=== PATIENT | female | born 1985 | race Caucasian/White ===

== ENCOUNTER 2018-04-14 12:18 | Emergency (ER) | payer OTHER ==
--- OUTSIDE RECORDS SUMMARY | 2018-04-14 12:21 | XMS REPORT | Clinical Summary ---
:1985 Author Organization [facility] Address [address] [place] [id number] Care Team Providers Name Role Phone Nohemy Douglas MD Primary Care Provider Allergies Active Allergy Reactions Severity Noted Date Comments Quetiapine GI Intolerance 05/26/2015 Medications Medication Sig Dispensed Refills Start Date End Date Status traZODone (DESYREL) Take 100 mg by 0 Active 100 MG tablet mouth nightly as needed. clonAZEPAM (KlonoPIN) Take 1 mg by mouth 0 Active 1 MG tablet 2 (two) times a day as needed for seizures. tretinoin microspheres Apply topically 0 Active (RETIN-A MICRO) 0.04 % nightly. gel promethazine Insert 25 mg into 0 Active (PHENERGAN) 25 MG the rectum every 6 suppository (six) hours as needed for nausea or vomiting. riboflavin, vitamin Take 1 tablet by 0 Active B2, 100 mg tablet mouth 4 (four) times a day. magnesium oxide Take 400 mg by 0 Active (MAG-OX) 400 mg tablet mouth 2 (two) times a day. nortriptyline Take 10 mg by 0 Active (PAMELOR) 10 MG mouth 4 (four) capsule times a day. levETIRAcetam (KEPPRA) Take 500 mg by 0 Active 500 MG tablet mouth 2 (two) times a day. nadolol (CORGARD) 20 Take 40 mg by 0 Active MG tablet mouth daily. LATUDA 60 mg tablet TAKE ONE (1) 0 05/15/2016 Active TABLET BY MOUTH AT BEDTIME lithium (LITHOBID) 300 Take 600 mg by 2 07/16/2016 Active MG CR tablet mouth nightly. DULoxetine (CYMBALTA) Take 90 mg by 0 07/16/2016 Active 30 MG capsule mouth once daily. diazePAM (VALIUM) 10 Take 10 mg by 2 07/16/2016 Active MG tablet mouth nightly. Active Problems Problem Noted Date Intractable migraine with status migrainosus 07/21/2016 Acne, unspecified 12/26/2015 Bipolar affective disorder 05/26/2015 Overview: - [facility] w Dr Mason , with pt Obgyn Family history of malignant neoplasm of breast 05/26/2015 Routine gynecological examination 05/26/2015 Low back pain 05/26/2015 Mixed anxiety depressive disorder 05/26/2015 Depressed mood 05/18/2015 Immunizations Name Dates Previously Given Next Due Influenza, Quadrivalent 12/14/2014 Tdap 04/11/2015 Family History Medical History Relation Name Comments Hypertension Father Heart disease Maternal Grandfather Cancer Mother breast age 58 Hypertension Mother Neurofibromatosis Mother Cancer Paternal Grandfather No Known Problems Sister Relation Name Status Comments Father Alive Maternal Aunt Alive x 3 breast cancer and one with bladder cancer Maternal Grandfather Mother Alive breast cancer Paternal Grandfather bladder Sister Alive Social History Tobacco Use Types Packs/Day Years Used Date Never Smoker Smokeless Tobacco: Never Used Alcohol Use Drinks/Week oz/Week Comments No Sex Assigned at Date Recorded Not on file Job Start Date Occupation Industry Not on file Not on file Not on file Travel History Travel Start Travel End No recent travel history available. Last Filed Vital Signs Not on file Plan of Treatment Health Maintenance Due Date Last Done Comments CERVICAL CANCER SCREENING 2005 INFLUENZA VACCINE 10/15/2017 12/14/2014, 12/14/2014 Results Not on fileafter 04/13/2017 Insurance Payer Benefit Plan / Group Subscriber ID Type Phone Address [employer] HMO/[place] xxxxxxxxx[place] [address] Advance Directives Patient has advance care planning documents on file. For more information, please contact:[place] [address]
[2018-04-14 13:40] LABS: Urine Bacteria <20 /HPF (<20); Urine Culture Reflex Order NOT NEEDED; Urine RBC 20-50 /HPF (NONE SEEN)
[2018-04-14 13:41] LABS: Urine Mucus 2+ /HPF (NONE SEEN)
[2018-04-14 13:41] LABS: Urine Blood 2+ (NEG); Urine Glucose NEGATIVE (NEG); Urine Protein 2+ (NEG); Urine Specific Gravity 1.025 (1.005-1.030)
[2018-04-14] MEDS ORDERED: KETOROLAC 30 MG/ML INJ ONE (13:42)
[2018-04-14] MEDS ORDERED: NA CHLORIDE 0.9% 0 ML ONE (13:42)
[2018-04-14 13:55] LABS: ALT/SGPT 18 U/L (12-78); AST/SGOT 9 U/L (15-37); Alkaline Phosphatase 84 U/L (45-117); BUN Blood Urea Nitrogen 12 mg/dL (7-18); Bicarbonate 28 mmol/L (21-32); Bilirubin Direct 0.1 mg/dL (0-0.2); Bilirubin Total 0.4 mg/dL (0.2-1.0); Glucose Level 86 mg/dL (74-106); Lipase 128 U/L (73-393); Potassium 3.6 mmol/L (3.5-5.1); Protein, Total 7.5 g/dL (6.4-8.2); Sodium Level 140 mmol/L (136-145)
[2018-04-14 14:03] LABS: Absolute Lymphocytes (CBC) 1.9 K/uL (0.7-4.9); Absolute Monocytes 0.5 K/uL (0.1-1.3); Basophils % 0.3 % (0-1.3); Eosinophils % 0.3 % (0-4.4); Hematocrit 41.2 % (36.0-45.0); Lymphocytes % 15.1 % (15.3-44.8); MPV 9.2 fL (7.6-11.3); Monocytes % 4.1 % (3.3-12.3); RBC Red Blood Cell Count 4.57 M/uL (3.86-4.86)
[2018-04-14] MEDS ORDERED: FENTANYL CITR 100 MCG/2 ML ONE (14:20)
[2018-04-14] MEDS ORDERED: NA CHLORIDE 0.9% 1,000 ML ONE (14:29)
--- NOTE | 2018-04-14 14:46 | RAD REPORT ---
EXAM DESCRIPTION: CT - Abdomen Pelvis W Contrast - 04/14/2018 2:31 pm CLINICAL HISTORY: Abdominal pain, history of bladder infection COMPARISON: None. TECHNIQUE: Biphasic, helical CT imaging of the abdomen and pelvis was performed following 100 ml non -ionic IV contrast. Oral contrast was given. All CT scans are performed using dose optimization technique as appropriate and may include automated exposure control or mA/KV adjustment according to patient size. FINDINGS: No suspicious findings in the lung bases. No pericardial thickening or effusion. Small lym ph node is present in the left side pericardial fat. A 2.5 centimeter right-side pericardial cyst pre sent as an incidental finding. The liver, spleen, and pancreas show no suspicious findings. Cholecystectomy clips are present. No bi liary tree dilatation. Symmetric renal function is seen with no hydronephrosis or suspicious renal mass. No pyelonephritis o r acute parenchymal process. Urinary bladder is contracted. Wall appears thickened and edematous cons istent with a cystitis history. No bladder calculus or bladder mass. Uterus and ovaries show no suspi cious findings. No adrenal abnormalities. No dilated bowel loops or bowel wall thickening. Appendix is normal. No free air, free fluid or pneum atosis. No other area of inflammatory change identifiable. No hernia, mass or bulky lymphadenopathy. No suspicious bony findings. IMPRESSION: Cystitis pattern seen in the bladder with no mass or bladder stone. No pyelonephritis or acute finding. No acute GI or EDITORIAL CLERK finding. Gallbladder is absent. Nonacute findings detailed in the body of the re port.
--- NOTE | 2018-04-14 15:17 | ER ---
Nurse's Notes [facility] Name: Tash Peña Age: 33 yrs Sex: Female : 1985 Arrival Date: 04/14/2018 Time: 12:21 Bed 14 Private MD: None, None Diagnosis: Cystitis, unspecified with hematuria Presentation: 04/14 12:34 Presenting complaint: Patient states: for the past 4 days i have been having bladder tw2 infection, now my back hurts and pressure and i noticed some blood today, the pain in my back and side has been for 2 days, it is worse than before, it feels similar to my previous kidney infection. Transition of care: patient was not received from another setting of care. Onset of symptoms was April 14, 2018. Risk Assessment: Do you want to hurt yourself or someone else? Patient reports no desire to harm self or others. Initial Sepsis Screen: Does the patient meet any 2 criteria? No. Patient's initial sepsis screen is negative. Does the patient have a suspected source of infection? No. Patient's initial sepsis screen is negative. Care prior to arrival: None. 12:34 Method Of Arrival: Ambulatory tw2 12:34 Acuity: MABLE 3 tw2 Triage Assessment: 12:36 General: Appears in no apparent distress. well groomed, Behavior is calm, cooperative, tw2 appropriate for age. Pain: Complains of pain in back, abdomen and pelvis. GI: Reports nausea. : Reports burning with urination, pain in left in lower back with urination, "and this pressure is just staying constant and in my pelvis" urinary frequency, vaginal bleeding that is. 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 - Social history:: Smoking status: . - Ebola Screening: : Patient denies travel to an Ebola-affected area in the 21 days before illness onset. Screenin:50 Abuse screen: Denies threats or abuse. Denies injuries from another. Nutritional ca1 screening: No deficits noted. Tuberculosis screening: No symptoms or risk factors identified. Fall Risk None identified. Assessment: 12:50 General: Appears in no apparent distress. uncomfortable. Pain: Complains of pain in ca1 pelvis and abdomen and back Pain currently is 7 out of 10 on a pain scale. Quality of pain is described as sharp, Pain began 4 days ago. Neuro: Level of Consciousness is awake, alert, obeys commands, Oriented to person, place, time, situation. Cardiovascular: Heart tones S1 S2 present Capillary refill < 3 seconds. Respiratory: Airway is patent Trachea midline Respiratory effort is even, unlabored, Respiratory pattern is regular, symmetrical, Breath sounds are clear bilaterally. GI: Abdomen is flat, non-distended, Bowel sounds present X 4 quads. Abd is soft Abdomen is tender to palpation in right lower quadrant and left lower quadrant Reports nausea, vomiting. : Urine is cloudy, blood tinged as reported by pt. Reports burning with urination, pain urgency, urinary frequency. EENT: No signs and/or symptoms were reported regarding the EENT system. Derm: Skin is intact, is healthy with good turgor, Skin is pink, warm \\T\\ dry. Musculoskeletal: Circulation, motion, and sensation intact. 13:38 Reassessment: Patient appears in no apparent distress at this time. Patient and/or ca1 family updated on plan of care and expected duration. Pain level reassessed. Patient is alert, oriented x 3, equal unlabored respirations, skin warm/dry/pink. 14:05 Reassessment: Patient appears in no apparent distress at this time. Patient is alert, ca1 oriented x 3, equal unlabored respirations, skin warm/dry/pink. patient is crying and still complains of sharp pain at back and abdomen. Notified provider. 14:39 Reassessment: Patient appears in no apparent distress at this time. Patient and/or ca1 family updated on plan of care and expected duration. Pain level reassessed. Patient is alert, oriented x 3, equal unlabored respirations, skin warm/dry/pink. 15:30 Reassessment: Patient appears in no apparent distress at this time. Patient and/or ca1 family updated on plan of care and expected duration. Pain level reassessed. Patient is alert, oriented x 3, equal unlabored respirations, skin warm/dry/pink. Vital Signs: 12:35 BP 110 / 86; Pulse 86; Resp 17; Temp 97.6; Pulse Ox 100% on R/A; Weight 62.6 kg (R); tw2 Height 5 ft. 4 in. (162.56 cm); Pain 7/10; 13:38 BP 102 / 65; Pulse 85; Resp 18; Pulse Ox 100% on R/A; ca1 14:05 BP 110 / 60; Pulse 72; Resp 18; Pulse Ox 99% on R/A; Pain 7/10; ca1 14:38 BP 102 / 68; Pulse 68; Resp 19; Pulse Ox 100% on R/A; ca1 15:30 BP 105 / 67; Pulse 64; Resp 19; Pulse Ox 100% on R/A; ca1 12:35 Body Mass Index 23.69 (62.60 kg, 162.56 cm) tw2 ED Course: 12:21 Patient arrived in ED. mr 12:22 None, None is Private Physician. mr 12:35 Triage completed. tw2 12:39 Arm band placed on. tw2 12:41 jM Slade PA is PHCP. cp 12:41 Joel Cash MD is Attending Physician. cp 12:48 Marylou Rothman, FLOR is Primary Nurse. ca1 12:50 Patient has correct armband on for positive identification. Placed in gown. Bed in low ca1 position. Call light in reach. Side rails up X 1. Pulse ox on. NIBP on. Warm blanket given. 12:55 Urine collected: clean catch specimen, cloudy, Amount Voided: 40mL UPT and Dipstick ca1 done. UPT - negative. 13:22 Inserted saline lock: 20 gauge in right antecubital area, using aseptic technique. ca1 Blood collected. 14:31 CT Abd/Pelvis - W/Contrast: no oral contrast In Process Unspecified. EDMS 14:32 CT completed. Patient tolerated procedure well. Patient moved to CT via wheelchair. jg6 Patient moved back from CT. 15:16 Nancie Vega MD is Referral Physician. cp 15:45 No provider procedures requiring assistance completed. IV discontinued, intact, ca1 bleeding controlled, No redness/swelling at site. Pressure dressing applied. Administered Medications: 13:25 Drug: NS 0.9% 1000 ml Route: IV; Rate: 1 bolus; Site: right antecubital; ca1 15:30 Follow up: Response: No adverse reaction; IV Status: Completed infusion ca1 13:26 Drug: TORadol 30 mg Route: IVP; Site: right antecubital; ca1 14:34 Follow up: Response: Pain is unchanged, physician notified ca1 14:15 Drug: fentaNYL (PF) 25 mcg Route: IVP; Site: right antecubital; ca1 15:42 Follow up: Response: No adverse reaction; Pain is unchanged, physician notified ca1 15:12 Drug: Rocephin 1 grams Route: IV; Rate: bolus; Site: right antecubital; ca1 15:42 Follow up: Response: Medication administered at discharge. ca1 15:43 Follow up: IV Status: IVP per Pharmacy protocol ca1 15:15 Drug: Pyridium 200 mg Route: PO; ca1 15:43 Follow up: Response: Medication administered at discharge. ca1 15:21 Not Given (Physician Discretion): Tylenol #3 (300 mg-30 mg) 2 tabs PO once cp 15:25 Drug: fentaNYL (PF) 50 mcg Route: IVP; Site: right antecubital; ca1 15:42 Follow up: Response: Medication administered at discharge. ca1 15:41 Not Given (P discharged): NS 0.9% 1000 ml IV at 125 ml/hr continuous ca1 Outcome: 15:17 Discharge ordered by MD. cp 15:45 Discharged to home ambulatory. ca1 15:45 Condition: stable 15:45 Discharge instructions given to patient, Instructed on discharge instructions, follow up and referral plans. medication usage, Demonstrated understanding of instructions, follow-up care, medications, Prescriptions given X 4. 16:00 Patient left the ED. ca1 Signatures: Dispatcher [employer] EDMS Jordan Ellen Mj Mclean PA PA cp Wise, Tara, RN RN tw2 Donna Isabel Cheryl RN RN ca1
--- NOTE | 2018-04-14 15:18 | EDPHYS ---
Physician Documentation [facility] Name: Tash Peña Age: 33 yrs Sex: Female : 1985 Arrival Date: 04/14/2018 Time: 12:21 Bed 14 Private MD: None, None ED Physician Joel Cash HPI: 04/14 13:10 This 33 yrs old Female presents to ER via Ambulatory with complaints of cp Urinary Problem. 13:10 The patient presents with urinary symptoms, dysuria, frequency, hematuria. Onset: The cp symptoms/episode began/occurred 4 day(s) ago. Associated signs and symptoms: Pertinent positives: low back pain, Pertinent negatives: constipation, diarrhea, fever. Severity of symptoms: in the emergency department the symptoms are unchanged, despite home interventions. 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 - Social history:: Smoking status: . - Ebola Screening: : Patient denies travel to an Ebola-affected area in the 21 days before illness onset. ROS: 13:20 Constitutional: Negative for fever, poor PO intake. cp 13:20 Eyes: Negative for injury, pain, redness, and discharge. cp 13:20 Cardiovascular: Negative for chest pain, edema, palpitations, acute changes. cp 13:20 ENT: Negative for drainage from ear(s), ear pain, sore throat, difficulty swallowing, cp difficulty handling secretions. 13:20 Respiratory: Negative for cough, shortness of breath, wheezing. 13:20 Abdomen/GI: Negative for vomiting, diarrhea, constipation, black/tarry stool, rectal bleeding. 13:20 Back: Positive for pain at rest, pain with movement, Negative for injury or acute deformity, decreased range of motion. 13:20 : Positive for urinary symptoms. 13:20 Skin: Negative for cellulitis, rash. 13:20 Neuro: Negative for altered mental status, headache, weakness. 13:20 All other systems are negative. Exam: 13:25 Constitutional: The patient appears in no acute distress, alert, awake, non-toxic, well cp developed, well nourished, uncomfortable. 13:25 Head/Face: Normocephalic, atraumatic. cp 13:25 Eyes: Pupils equal round and reactive to light, extra-ocular motions intact. Lids and cp lashes normal. Conjunctiva and sclera are non-icteric and not injected. Cornea within normal limits. Periorbital areas with no swelling, redness, or edema. ENT: Nares patent. No nasal discharge, no septal abnormalities noted. Tympanic membranes are normal and external auditory canals are clear. Oropharynx with no redness, swelling, or masses, exudates, or evidence of obstruction, uvula midline. Mucous membranes moist. Chest/axilla: Normal chest wall appearance and motion. Nontender with no deformity. No lesions are appreciated. 13:25 Cardiovascular: Rate: normal, Rhythm: regular, Edema: is not appreciated. cp 13:25 Respiratory: the patient does not display signs of respiratory distress, Respirations: normal, no use of accessory muscles, no retractions, no splinting, no tachypnea, labored breathing, is not present, Breath sounds: are clear throughout, no decreased breath sounds, no stridor, no wheezing. 13:25 Abdomen/GI: Inspection: abdomen appears normal, Bowel sounds: active, all quadrants, Palpation: soft, in all quadrants, mild abdominal tenderness, in the right lower quadrant and left lower quadrant, rebound tenderness, is not appreciated, involuntary guarding, is not appreciated. 13:25 Back: pain, that is moderate, of the left low back, ROM is normal. 13:25 Skin: cellulitis, is not appreciated, no rash present. Vital Signs: 12:35 BP 110 / 86; Pulse 86; Resp 17; Temp 97.6; Pulse Ox 100% on R/A; Weight 62.6 kg (R); tw2 Height 5 ft. 4 in. (162.56 cm); Pain 7/10; 13:38 BP 102 / 65; Pulse 85; Resp 18; Pulse Ox 100% on R/A; ca1 14:05 BP 110 / 60; Pulse 72; Resp 18; Pulse Ox 99% on R/A; Pain 7/10; ca1 14:38 BP 102 / 68; Pulse 68; Resp 19; Pulse Ox 100% on R/A; ca1 15:30 BP 105 / 67; Pulse 64; Resp 19; Pulse Ox 100% on R/A; ca1 12:35 Body Mass Index 23.69 (62.60 kg, 162.56 cm) tw2 MDM: 12:41 Patient medically screened. cp 14:00 Differential diagnosis: endometriosis, ovarian cyst, urinary tract infection, cp pyelonephritis, cystitis. 15:15 Data reviewed: vital signs, nurses notes, lab test result(s), radiologic studies, CT cp scan, and as a result, I will discharge patient. 15:15 Counseling: I had a detailed discussion with the patient and/or guardian regarding: the cp historical points, exam findings, and any diagnostic results supporting the discharge/admit diagnosis, lab results, radiology results, the need for outpatient follow up, a urologist. 04/14 13:04 Order name: Urine Dipstick--Ancillary (enter results); Complete Time: 14:03 04/14 14:03 Interpretation: Normal except: UBLD 2+; UPROT 2+; UESTR 2+. cp 04/14 13:04 Order name: Urine --Ancillary (enter results); Complete Time: 14:03 04/14 13:12 Order name: Basic Metabolic Panel; Complete Time: 14:03 04/14 13:12 Order name: CBC with Diff; Complete Time: 15:03 04/14 15:03 Interpretation: Normal except: WBC 12.5; MCV 90.1; GIA% 80.2; LYM% 15.1; NEUT A 10.0. 04/14 13:12 Order name: Creatinine for Radiology; Complete Time: 14:03 04/14 13:12 Order name: Hepatic Function; Complete Time: 14:03 04/14 13:12 Order name: Lipase; Complete Time: 14:03 04/14 13:12 Order name: [place]; Complete Time: 15:03 04/14 13:14 Order name: Urine Microscopic Only; Complete Time: 14:03 04/14 14:03 Interpretation: Normal except: UWBC >50; URBC 20-50; SQEPI 5-10. cp 04/14 13:14 Order name: Urine Culture cp 04/14 13:14 Order name: CT Abd/Pelvis - W/Contrast: no oral contrast; Complete Time: 15:03 cp 04/14 13:12 Order name: IV Saline Lock; Complete Time: 13:32 cp 04/14 13:12 Order name: Labs collected and sent; Complete Time: 13:32 cp Administered Medications: 13:25 Drug: NS 0.9% 1000 ml Route: IV; Rate: 1 bolus; Site: right antecubital; ca1 15:30 Follow up: Response: No adverse reaction; IV Status: Completed infusion ca1 13:26 Drug: TORadol 30 mg Route: IVP; Site: right antecubital; ca1 14:34 Follow up: Response: Pain is unchanged, physician notified ca1 14:15 Drug: fentaNYL (PF) 25 mcg Route: IVP; Site: right antecubital; ca1 15:42 Follow up: Response: No adverse reaction; Pain is unchanged, physician notified ca1 15:12 Drug: Rocephin 1 grams Route: IV; Rate: bolus; Site: right antecubital; ca1 15:42 Follow up: Response: Medication administered at discharge. ca1 15:43 Follow up: IV Status: IVP per Pharmacy protocol ca1 15:15 Drug: Pyridium 200 mg Route: PO; ca1 15:43 Follow up: Response: Medication administered at discharge. ca1 15:21 Not Given (Physician Discretion): Tylenol #3 (300 mg-30 mg) 2 tabs PO once cp 15:25 Drug: fentaNYL (PF) 50 mcg Route: IVP; Site: right antecubital; ca1 15:42 Follow up: Response: Medication administered at discharge. ca1 15:41 Not Given (P discharged): NS 0.9% 1000 ml IV at 125 ml/hr continuous ca1 Disposition: 18:24 Co-signature as Attending Physician, Joel Cash MD. ma2 Disposition: 04/14/18 15:17 Discharged to Home. Impression: Cystitis, unspecified with hematuria. - Condition is Stable. - Discharge Instructions: Urinary Tract Infection, Adult, Interstitial Cystitis. - Prescriptions for Naprosyn 500 mg Oral Tablet - take 1 tablet by ORAL route 2 times per day take with food; 20 tablet. Pyridium 200 mg Oral Tablet - take 1 tablet by ORAL route every 8 hours for 3 days; 9 tablet. Tylenol- Codeine #3 300-30 mg Oral Tablet - take 2 tablets by ORAL route every 6 hours As needed; 20 tablet. Cipro 500 mg Oral Tablet - take 1 tablet by ORAL route every 12 hours for 7 days; 14 tablet. - Medication Reconciliation Form, Thank You Letter, Antibiotic Education, Prescription Opioid Use form. - Follow up: Nancie Vega MD; When: 2 - 3 days; Reason: Recheck today's complaints. - Problem is new. - Symptoms have improved. Signatures: Dispatcher [employer] EDMS Mj Slade PA PA cp Wise, Tara, RN RN tw2 Joel Cash MD MD ma2 Marylou Rothman RN RN ca1 Corrections: (The following items were deleted from the chart) 15:18 15:17 04/14/2018 15:17 Discharged to Home. Impression: Cystitis, unspecified with cp hematuria. Condition is Stable. Forms are Medication Reconciliation Form, Thank You Letter, Antibiotic Education, Prescription Opioid Use. Follow up: Nancie Vega; When: 2 - 3 days; Reason: Recheck today's complaints. Problem is new. Symptoms have improved. cp 16:00 15:18 04/14/2018 15:17 Discharged to Home. Impression: Cystitis, unspecified with ca1 hematuria. Condition is Stable. Discharge Instructions: Interstitial Cystitis. Forms are Medication Reconciliation Form, Thank You Letter, Antibiotic Education, Prescription Opioid Use. Follow up: Nancie Vega; When: 2 - 3 days; Reason: Recheck today's complaints. Problem is new. Symptoms have improved. cp
[2018-04-14] MEDS ORDERED: PHENAZOPYRIDINE 100MG TAB PO ONE (15:20)
[2018-04-14] MEDS ORDERED: CEFTRIAXONE/SWI 1gm 1 GM/10 ML SYR ONE (15:20)
[2018-04-14] MEDS ORDERED: CODEINE 30MG/APAP 300MG TAB ONE (15:22)
== END 2018-04-14 16:00 | disposition home or self-care (01) ==
LOC: ER 12:18
DX: N30.91 Cystitis, unspecified with hematuria (principal); F41.9 Anxiety disorder, unspecified; F32.9 Major depressive disorder, single episode, unspecified; Z88.5 Allergy status to narcotic agent
CPT/HCPCS: 36415; 74177; 80048; 80076; 80178; 81003; 81015; 81025; 83690; 85025; 87077; 87086; 87088; 87186; 96361; 96365; 96375; 99284; J0696; J3010; J7030; Q9967

== ENCOUNTER 2018-05-21 18:57 | Emergency (ER) | payer OTHER ==
--- OUTSIDE RECORDS SUMMARY | 2018-05-21 18:59 | XMS REPORT | Clinical Summary ---
:1985 Author Organization [facility] Address [address] [place] [id number] Care Team Providers Name Role Phone Nohemy [...] 10/15/2017 12/14/2014, 12/14/2014 Results Not on fileafter 05/20/2017 Insurance Payer Benefit Plan / Group Subscriber ID Type Phone Address [employer] HMO/POS xxxxxxxxxxx [place] [address] Advance Directives Patient has advance care planning documents on file. For more information, please contact:[place] [address]
--- NOTE | 2018-05-21 19:47 | ER ---
Nurse's Notes [facility] Name: Tash Peña Age: 33 yrs Sex: Female : 1985 Arrival Date: 05/21/2018 Time: 18:59 Bed Waiting Private MD: Diagnosis: ED Course: 05/21 18:59 Patient arrived in ED. rg4 19:15 Patient's name was called from ER lobby. No response. aj1 19:30 Patient's name was called from ER lobby. No response. aj1 19:46 Patient's name was called from ER lobby. No response. Unable to locate patient. Will aj1 disposition as left without being seen by a provider. Administered Medications: No medications were administered Outcome: 19:46 Patient left the ED. aj1 Signatures: Mercedes Betancur RN RN Margy Garcias rg4
== END 2018-05-21 19:46 | disposition left against medical advice (07) ==
LOC: ER 18:57
DX: Z53.21 Procedure and treatment not carried out due to patient leaving prior to being seen by health care provider (principal)

== ENCOUNTER 2018-06-16 02:03 | Emergency (ER) | payer OTHER ==
--- OUTSIDE RECORDS SUMMARY | 2018-06-16 02:06 | XMS REPORT | Clinical Summary ---
:1985 Author Organization [facility] Address [address] [place] [address] Care Team Providers Name Role Phone Nohemy Douglas MD Primary Care Provider Allergies Active Allergy Reactions Severity Noted Date Comments Quetiapine GI Intolerance 05/26/2015 Medications Medication Sig Dispensed Refills Start Date End Date Status traZODone (DESYREL) Take 100 mg by 0 Active 100 MG tablet mouth nightly as needed. clonAZEPAM (KlonoPIN) Take 1 mg by 0 Active 1 MG tablet mouth 2 (two) times a day as needed for seizures. tretinoin Apply topically 0 Active microspheres (RETIN-A nightly. MICRO) 0.04 % gel promethazine Insert 25 mg 0 Active (PHENERGAN) 25 MG into the rectum suppository every 6 (six) hours as needed for nausea or vomiting. riboflavin, vitamin Take 1 tablet by 0 Active B2, 100 mg tablet mouth 4 (four) times a day. magnesium oxide Take 400 mg by 0 Active (MAG-OX) 400 mg mouth 2 (two) tablet times a day. nortriptyline Take 10 mg by 0 Active (PAMELOR) 10 MG mouth 4 (four) capsule times a day. levETIRAcetam Take 500 mg by 0 Active (KEPPRA) 500 MG mouth 2 (two) tablet times a day. nadolol (CORGARD) 20 Take 40 mg by 0 Active MG tablet mouth daily. LATUDA 60 mg tablet TAKE ONE (1) 0 05/15/2016 Active TABLET BY MOUTH AT BEDTIME lithium (LITHOBID) Take 600 mg by 2 07/16/2016 Active 300 MG CR tablet mouth nightly. DULoxetine (CYMBALTA) Take 90 mg by 0 07/16/2016 Active 30 MG capsule mouth once daily. diazePAM (VALIUM) 10 Take 10 mg by 2 07/16/2016 Active MG tablet mouth nightly. LORAZepam (ATIVAN) 1 Take 1 tablet (1 12 tablet 0 05/22/2018 05/25/2018 MG tablet mg total) by mouth 3 (three) times a day as needed for anxiety for up to 3 days. Active Problems Problem Noted Date Intractable migraine with status migrainosus 07/21/2016 Acne, unspecified 12/26/2015 Bipolar affective disorder 05/26/2015 Overview: - [facility] w Dr Mason , with pt Obgyn Family history of malignant neoplasm of breast 05/26/2015 Routine gynecological examination 05/26/2015 Low back pain 05/26/2015 Mixed anxiety depressive disorder 05/26/2015 Depressed mood 05/18/2015 Encounters Date Type Specialty Care Team Description 05/22/2018 Emergency Emergency Medicine Timothy Kilgore Panic attack as MD Dawson reaction to stress (Primary Dx) 05/21/2018 Emergency Emergency Medicine Chano Langston DO Generalized anxiety disorder with panic attacks (Primary Dx) after 06/15/2017 Immunizations Name Dates Previously Given Next Due [...] travel history available. 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 Pulse 82 05/22/2018 11:14 PM SENIOR FIRMWARE ENGINEER Temperature 36.8 C (98.3 F) 05/22/2018 11:14 PM SENIOR FIRMWARE ENGINEER Respiratory Rate 18 05/22/2018 11:14 PM SENIOR FIRMWARE ENGINEER Oxygen Saturation 98% 05/22/2018 11:14 PM SENIOR FIRMWARE ENGINEER Inhaled Oxygen Concentration - - Weight 95.3 kg (210 lb) 05/22/2018 10:16 PM SENIOR FIRMWARE ENGINEER Height 170.2 cm (5' 7") 05/22/2018 10:16 PM SENIOR FIRMWARE ENGINEER Body Mass Index 32.89 05/22/2018 10:16 PM SENIOR FIRMWARE ENGINEER Plan of Treatment Health Maintenance Due Date Last Done Comments CERVICAL CANCER SCREENING 2005 INFLUENZA VACCINE 10/15/2017 12/14/2014, 12/14/2014 Results Not on fileafter 06/15/2017 Insurance Payer Benefit Plan / Group Subscriber ID Type Phone Address [employer]WORK xxxxxxxxxxx HMO Advance Directives Patient has advance care planning documents on file. For more information, please contact:[id number] [place] [address]
[2018-06-16] MEDS ORDERED: LORAZEPAM 1 MG TABLET ONE (03:12)
--- NOTE | 2018-06-16 03:36 | EDPHYS ---
Physician Documentation [facility] Name: Tash Peña Age: 33 yrs Sex: Female : 1985 Arrival Date: 06/16/2018 Time: 02:07 Bed 17 Private MD: ED Physician Erick Zarco HPI: 06/16 03:32 This 33 yrs old Female presents to ER via Ambulatory with complaints of tw4 Palpitations, Chest Pain, Chest Tightness. 03:32 The patient presents with a history of heart racing. Context: The symptoms occur with tw4 anxiety. Onset: The symptoms/episode began/occurred just prior to arrival. Duration: The patient or guardian reports a single episode, that is still ongoing, but improving. Modifying factors: The symptoms are aggravated by nothing. The symptoms are alleviated by nothing. Associated signs and symptoms: The patient has no apparent associated signs or symptoms. Severity of symptoms: At their worst the symptoms were moderate. The patient has not experienced similar symptoms in the past. 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 - Social history:: Smoking status: Patient uses tobacco products, denies chronic smoking, but will smoke occasionally, Patient/guardian denies using alcohol, street drugs. - Ebola Screening: : No symptoms or risks identified at this time. ROS: 03:32 Constitutional: Negative for fever, chills, and weight loss, Neck: Negative for injury, tw4 pain, and swelling, Respiratory: Negative for shortness of breath, cough, wheezing, and pleuritic chest pain, Abdomen/GI: Negative for abdominal pain, nausea, vomiting, diarrhea, and constipation, Back: Negative for injury and pain, MS/Extremity: Negative for injury and deformity, Skin: Negative for injury, rash, and discoloration, Neuro: Negative for headache, weakness, numbness, tingling, and seizure. 03:32 Cardiovascular: Positive for palpitations, Negative for chest pain, edema, orthopnea. Exam: 03:32 Constitutional: This is a well developed, well nourished patient who is awake, alert, tw4 and in no acute distress. Head/Face: Normocephalic, atraumatic. Chest/axilla: Normal chest wall appearance and motion. Nontender with no deformity. No lesions are appreciated. Cardiovascular: Regular rate and rhythm with a normal S1 and S2. No gallops, murmurs, or rubs. Normal PMI, no JVD. No pulse deficits. Respiratory: Lungs have equal breath sounds bilaterally, clear to auscultation and percussion. No rales, rhonchi or wheezes noted. No increased work of breathing, no retractions or nasal flaring. Abdomen/GI: Soft, non-tender, with normal bowel sounds. No distension or tympany. No guarding or rebound. No evidence of tenderness throughout. Back: No spinal tenderness. No costovertebral tenderness. Full range of motion. MS/ Extremity: Pulses equal, no cyanosis. Neurovascular intact. Full, normal range of motion. Neuro: Awake and alert, GCS 15, oriented to person, place, time, and situation. Cranial nerves II-XII grossly intact. Motor strength 5/5 in all extremities. Sensory grossly intact. Cerebellar exam normal. Normal gait. Vital Signs: 02:24 BP 107 / 72; Pulse 73; Resp 16 S; Temp 97.7(O); Pulse Ox 100% on R/A; Weight 65.77 kg bb (R); Height 5 ft. 4 in. (162.56 cm) (R); 03:00 BP 103 / 69; Pulse 77; Resp 16; Pulse Ox 99% on R/A; jb4 02:24 Body Mass Index 24.89 (65.77 kg, 162.56 cm) bb MDM: 02:17 Patient medically screened. tw4 03:34 Differential diagnosis: arrythmia, dehydration, stress disorder. Data reviewed: vital tw4 signs, nurses notes. Data interpreted: athletic monitor: rate is 77 beats/min, rhythm is normal sinus rhythm, Pulse oximetry: Interpretation:. Counseling: I had a detailed discussion with the patient and/or guardian regarding: the historical points, exam findings, and any diagnostic results supporting the discharge/admit diagnosis. Medical screen evaluation completed. EMTALA emergency medical condition absent. Medication response: ativan. Response to treatment: and as a result, I will discharge patient. Special discussion: I discussed with the patient/guardian in detail that at this point there is no indication for admission to the hospital. It is understood, however, that if the symptoms persist or worsen the patient needs to return immediately for re-evaluation. 04:03 ED course: Pt states that she has not has sleep in 4 days due to life stressors. Pt tw4 given Ativan for anxiety po. Pt states that Ativan doesn't work. Pt became more frustrated. Nurse informed MD that pt was more agitated. She then became belligerent towards staff. I informed patient that she could not "yell at staff members" I asked pt if she would like an alternative medication. Pt refused other treatment and refused discharge paperwork.. Administered Medications: 03:00 Drug: Ativan 1 mg Route: PO; jb4 Disposition: 06/16/18 03:36 Discharged to Home. Impression: Anxiety disorder, unspecified. - Condition is Stable. - Discharge Instructions: Social Anxiety Disorder, Panic Attacks, [id number], Generalized Anxiety Disorder. - Prescriptions for Ativan 1 mg Oral Tablet - take 1 tablet by ORAL route every 8 hours As needed; 5 tablet. - Medication Reconciliation Form, Thank You Letter, Antibiotic Education, Prescription Opioid Use form. - Follow up: Private Physician; When: Upon discharge from the Emergency Department; Reason: If symptoms return, Recheck today's complaints, Continuance of care. - Problem is new. - Symptoms have improved. Signatures: Maria Alejandra Maxwell RN RN bb Akbar Christopher RN RN jb4 Erick Zarco MD MD tw4 Corrections: (The following items were deleted from the chart) 04:08 03:36 06/16/2018 03:36 Discharged to Home. Impression: Anxiety disorder, unspecified. bb Condition is Stable. Forms are Medication Reconciliation Form, Thank You Letter, Antibiotic Education, Prescription Opioid Use. Follow up: Private Physician; When: Upon discharge from the Emergency Department; Reason: If symptoms return, Recheck today's complaints, Continuance of care. Problem is new. Symptoms have improved. tw4
--- NOTE | 2018-06-16 03:36 | ER ---
Nurse's Notes [facility] Name: Tash Peña Age: 33 yrs Sex: Female : 1985 Arrival Date: 06/16/2018 Time: 02:07 Bed 17 Private MD: Diagnosis: Anxiety disorder, unspecified Presentation: 06/16 02:19 Presenting complaint: Patient states: she has a history of anxiety and she is Bipolar bb and she is having anxiety the last few days have been very difficult her mother moved in with her because she has stage IV cancer, her had an appendectomy, she had to leave her son in [place] and is just too much. She has not been able to sleep the last few days and is experiencing some chest tightness and palpitations. She tried to make an appointment with her psychiatrist but is unable to get in until Friday and she is just overwhelmed. Transition of care: patient was not received from another setting of care. Onset of symptoms was June 13, 2018. Risk Assessment: Do you want to hurt yourself or someone else? Patient reports no desire to harm self or others. Initial Sepsis Screen: Does the patient meet any 2 criteria? No. Patient's initial sepsis screen is negative. Does the patient have a suspected source of infection? No. Patient's initial sepsis screen is negative. Care prior to arrival: None. 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 - Social history:: Smoking status: Patient uses tobacco products, denies chronic smoking, but will smoke occasionally, Patient/guardian denies using alcohol, street drugs. - Ebola Screening: : No symptoms or risks identified at this time. Screenin:30 Abuse screen: Denies threats or abuse. Nutritional screening: No deficits noted. jb4 Tuberculosis screening: No symptoms or risk factors identified. Fall Risk None identified. Assessment: 02:30 General: Appears in no apparent distress. uncomfortable, Behavior is cooperative, jb4 agitated, anxious, Pt reports being unable to sleep for the past 3 days and cope with recent stressors of the past 4 days. Medications at home are not helping and is unable to see her provider until the end of the week, and would like some relief.. Pain: Complains of pain in chest Pain does not radiate. Pain currently is 2 out of 10 on a pain scale. Quality of pain is described as tightness Pain began 2-3 days ago. Neuro: Level of Consciousness is awake, alert, obeys commands, Oriented to person, place, time, situation. Cardiovascular: Patient's skin is warm and dry. Respiratory: Reports shortness of breath Airway is patent Respiratory effort is even, unlabored, Respiratory pattern is regular, symmetrical. GI: No signs and/or symptoms were reported involving the gastrointestinal system. : No signs and/or symptoms were reported regarding the genitourinary system. EENT: No signs and/or symptoms were reported regarding the EENT system. Derm: Skin is intact, Skin is pink, warm \\T\\ dry. Musculoskeletal: Circulation, motion, and sensation intact. 03:18 Reassessment: Patient appears in no apparent distress at this time. No changes from jb4 previously documented assessment. Patient and/or family updated on plan of care and expected duration. Pain level reassessed. 03:57 Reassessment: upon discharge pt became very upset states she has a serious mental bb illness and we are not listening to her pt reassured that we are listening and trying to help her asked her what works for her in these situations she states "I don't know I need something to relax I have not slept in 4 days" again pt was asked if she wanted sleeping pills and she said no. Dr Zarco offered to prescribe a different medication and pt became very agitated and left with her spouse. Vital Signs: 02:24 BP 107 / 72; Pulse 73; Resp 16 S; Temp 97.7(O); Pulse Ox 100% on R/A; Weight 65.77 kg bb (R); Height 5 ft. 4 in. (162.56 cm) (R); 03:00 BP 103 / 69; Pulse 77; Resp 16; Pulse Ox 99% on R/A; jb4 02:24 Body Mass Index 24.89 (65.77 kg, 162.56 cm) bb ED Course: 02:07 Patient arrived in ED. es 02:13 Akbar Christopher, RN is Primary Nurse. jb4 02:17 Erick Zarco MD is Attending Physician. tw4 02:23 Triage completed. bb 02:24 Arm band placed on Patient placed in an exam room, on a stretcher, on pulse oximetry. bb Family accompanied patient. 02:30 Patient has correct armband on for positive identification. Bed in low position. Call jb4 light in reach. Side rails up X2. Pulse ox on. NIBP on. 04:05 No provider procedures requiring assistance completed. Patient did not have IV access bb during this emergency room visit. Patient maintains SpO2 saturation greater than 95% on room air. Administered Medications: 03:00 Drug: Ativan 1 mg Route: PO; jb4 Outcome: 03:36 Discharge ordered by . tw4 04:06 Discharged to home ambulatory, with family. bb 04:06 Condition: stable 04:06 Discharge instructions given to pt refused discharge instructions and prescription 04:08 Patient left the ED. bb Signatures: Shira Mendoza Brenda RN RN bb Akbar Christopher, RN FLOR jb Erick Zarco MD MD tw4
== END 2018-06-16 04:08 | disposition home or self-care (01) ==
LOC: ER 02:03
DX: F41.9 Anxiety disorder, unspecified (principal); F31.9 Bipolar disorder, unspecified; F32.9 Major depressive disorder, single episode, unspecified; Z72.0 Tobacco use; Z88.5 Allergy status to narcotic agent
CPT/HCPCS: 99284

== ENCOUNTER 2019-01-03 17:42 | Emergency (ER) | payer OTHER ==
[2019-01-03] MEDS ORDERED: HYDROCODONE/APAP 10/325 TAB ONE (18:16)
[2019-01-03] MEDS ORDERED: KETOROLAC 30 MG/ML INJ ONE (18:28)
[2019-01-03 18:40] LABS: Urine Blood TRACE (NEG); Urine Glucose NEGATIVE (NEG); Urine Protein NEGATIVE (NEG); Urine Specific Gravity 1.015 (1.005-1.030); Urine pH 6.5 (5.0-7.0)
--- NOTE | 2019-01-03 19:09 | RAD REPORT ---
EXAM DESCRIPTION: RAD - Hip Left 2 View - 01/03/2019 6:49 pm CLINICAL HISTORY: Left hip pain status post injury FINDINGS: No fracture or dislocation is seen. No bone or joint abnormality noted
[2019-01-03] MEDS ORDERED: dexAMETHasone 10 MG/ML VIAL ONE (19:34)
--- NOTE | 2019-01-03 19:51 | ER ---
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 Unable to bear weight. Transition of care: patient was not received from another setting of care. Onset of symptoms was January 03, 2019. Risk Assessment: Do you want to hurt yourself or someone else? Patient reports no desire to harm self or others. Initial Sepsis Screen: Does the patient meet any 2 criteria? No. Patient's initial sepsis screen is negative. Does the patient have a suspected source of infection? No. Patient's initial sepsis screen is negative. Care prior to arrival: Medication(s) given: Motrin, 1 hr RECREATIONAL THERAPIST. 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 - Social history:: Smoking status: Patient/guardian denies using tobacco. - Ebola Screening: : No symptoms or risks identified at this time. Screenin:59 Abuse screen: Denies threats or abuse. Denies injuries from another. Nutritional mg2 screening: No deficits noted. Tuberculosis screening: No symptoms or risk factors identified. Fall Risk Fall in past 12 months (25 points). Ambulatory Aid- None/Bed Rest/Nurse Assist (0 pts). Gait- Weak (10 pts.). Assessment: 18:00 General: Appears uncomfortable, Behavior is calm, cooperative. Pain: Complains of pain mg2 in left hip Pain radiates to left groin Pain currently is 8 out of 10 on a pain scale. Quality of pain is described as aching, Pain began suddenly, 1 hour ago. Is intermittent. Neuro: Level of Consciousness is awake, alert, obeys commands, Oriented to person, place, time, situation. Cardiovascular: Capillary refill < 3 seconds Patient's skin is warm and dry. Respiratory: Airway is patent Respiratory effort is even, unlabored, Respiratory pattern is regular, symmetrical. GI: No signs and/or symptoms were reported involving the gastrointestinal system. : No signs and/or symptoms were reported regarding the genitourinary system. EENT: No signs and/or symptoms were reported regarding the EENT system. Derm: Skin is intact, is healthy with good turgor, Skin is pink, warm \T\ dry. normal. Musculoskeletal: Circulation, motion, and sensation intact. Capillary refill < 3 seconds, Reports pain in left hip. 20:09 Reassessment: Patient appears in no apparent distress at this time. Patient states mg2 feeling better. Patient states symptoms have improved. Vital Signs: 17:52 BP 116 / 78; Pulse 77; Resp 16; Temp 97.5; Pulse Ox 100% on R/A; Weight 79.38 kg; hb Height 5 ft. 4 in. (162.56 cm); Pain 7/10; 19:17 BP 116 / 76; Pulse 78; Resp 18; Pulse Ox 100% on R/A; mg2 20:11 BP 120 / 78; Pulse 80; Resp 18; Temp 98.5; Pulse Ox 100% on R/A; Pain 2/10; mg2 17:52 Body Mass Index 30.04 (79.38 kg, 162.56 cm) hb ED Course: 17:43 Patient arrived in ED. as 17:52 Triage completed. hb 17:52 Arm band placed on. hb 17:55 Rodri Carlos, FLOR is Primary Nurse. mg2 18:01 No provider procedures requiring assistance completed. Patient did not have IV access mg2 during this emergency room visit. 18:03 Issac Boyer PA is PHCP. [facility] 18:03 Maikol Bush MD is Attending Physician. [facility] 18:03 Patient has correct armband on for positive identification. Pulse ox on. NIBP on. Door mg2 closed. Warm blanket given. 18:49 Hip Left 2 View XRAY In Process Unspecified. EDMS 19:50 Cristobal Matamoros MD is Referral Physician. jmm Administered Medications: 18:20 Drug: [place] 10 mg-325 mg 1 tabs Route: PO; mg2 19:16 Follow up: Response: No adverse reaction; Pain is decreased mg2 18:34 Drug: TORadol 30 mg Route: IM; Site: right gluteus; mg2 19:16 Follow up: Response: No adverse reaction; Pain is decreased mg2 19:38 Drug: Decadron 10 mg Route: IM; Site: right gluteus; mg2 20:09 Follow up: Response: No adverse reaction; Marked relief of symptoms mg2 Outcome: 19:50 Discharge ordered by MD. jmm 20:12 Discharged to home via wheelchair, with family. mg2 20:12 Condition: stable 20:12 Discharge instructions given to patient, family, Instructed on discharge instructions, follow up and referral plans. medication usage, Demonstrated understanding of instructions, follow-up care, medications, Prescriptions given X 2. 20:12 Patient left the ED. mg2 Signatures: Dispatcher [employer] EDMS Issac Boyer PA PA jmm Martinez, Amelia as Baxter, Heather, RN RN Rodri Carlos RN RN mg2
--- NOTE | 2019-01-03 19:51 | EDPHYS ---
Physician Documentation [facility] [place] Name: Tash Peña Age: 33 yrs Sex: Female : 1985 Arrival Date: 01/03/2019 Time: 17:43 Bed 24 Private MD: ED Physician Maikol Bush HPI: 01/03 18:30 This 33 yrs old Female presents to ER via Wheelchair with complaints of Groin jmm Pain, Hip Pain. 18:30 The patient presents with pain. Onset: The symptoms/episode began/occurred acutely, jmm today. Modifying factors: The symptoms are alleviated by nothing. the symptoms are aggravated by weight bearing. This is a 33 year old female that presents to the ED with complaints of left sided hip pain beginning 2 weeks ago worsening just prior to arrival after going down step and twisting her leg. Denies other injury. Pain radiates from the left hip to the groin. . BLOOD TYPER: 18:03 lmp unknown mg2 Historical: - Allergies: 17:52 No Known Allergies; hb - Home Meds: 18:02 Cymbalta 60 mg Oral cpDR 1 cap once daily [Active]; Klonopin 0.5 mg Oral tab 1 tab 3 mg2 times per day [Active]; lithium carbonate 300 mg Oral TbER 2 tabs daily [Active]; - PMHx: 18:02 Anxiety; Bipolar disorder; Depression; Migraines; mg2 - Immunization history:: Adult Immunizations up to date. - Social history:: Smoking status: Patient/guardian denies using tobacco. - Ebola Screening: : No symptoms or risks identified at this time. ROS: 18:30 Constitutional: Negative for fever, chills, and weight loss, Cardiovascular: Negative jmm for chest pain, palpitations, and edema, Respiratory: Negative for shortness of breath, cough, wheezing, and pleuritic chest pain. 18:30 MS/extremity: Positive for injury or acute deformity, pain. 18:30 All other systems are negative. Exam: 18:30 Constitutional: This is a well developed, well nourished patient who is awake, alert, jmm and in no acute distress. Head/Face: atraumatic. Eyes: EOMI, no conjunctival erythema appreciated ENT: Moist Mucus Membranes Neck: Trachea midline, Supple Chest/axilla: Normal chest wall appearance and motion. Cardiovascular: Regular rate and rhythm. No edema appreciated Respiratory: Normal respirations, no respiratory distress appreciated Abdomen/GI: Non distended, soft Back: Normal ROM Skin: General appearance color normal 18:30 Musculoskeletal/extremity: left lateral proximal femur tender to palpation, from appreciated to the left hip, no pain on palpation of the groin, compartments are soft, NVI. 18:30 Skin: Appearance: Color: normal in color. 18:30 Neuro: Orientation: is normal, Mentation: is normal, Memory: is normal. 18:30 Psych: Behavior/mood is pleasant, cooperative. Vital Signs: 17:52 BP 116 / 78; Pulse 77; Resp 16; Temp 97.5; Pulse Ox 100% on R/A; Weight 79.38 kg; hb Height 5 ft. 4 in. (162.56 cm); Pain 7/10; 19:17 BP 116 / 76; Pulse 78; Resp 18; Pulse Ox 100% on R/A; mg2 20:11 BP 120 / 78; Pulse 80; Resp 18; Temp 98.5; Pulse Ox 100% on R/A; Pain 2/10; mg2 17:52 Body Mass Index 30.04 (79.38 kg, 162.56 cm) hb MDM: 18:13 Patient medically screened. [facility] 19:49 Data reviewed: vital signs, nurses notes. Counseling: I had a detailed discussion with karen the patient and/or guardian regarding: the historical points, exam findings, and any diagnostic results supporting the discharge/admit diagnosis, radiology results, the need for outpatient follow up, to return to the emergency department if symptoms worsen or persist or if there are any questions or concerns that arise at home. ED course: Xray is negative. Patient is advised to follow up with ortho for reevaluation. patient otherwise given strict return precautions. Patient understood and agrees with the plan of care. . 01/03 18:33 Order name: Urine Dipstick--Ancillary (enter results); Complete Time: 18:41 bd 01/03 18:33 Order name: Urine --Ancillary (enter results); Complete Time: 18:41 bd 01/03 18:14 Order name: Hip Left 2 View XRAY; Complete Time: 19:20 [facility] 01/03 18:14 Order name: Urine Dipstick-Ancillary (obtain specimen); Complete Time: 18:33 [facility] 01/03 18:14 Order name: Urine Test (obtain specimen); Complete Time: 18:33 [facility] Administered Medications: 18:20 Drug: Elwood 10 mg-325 mg 1 tabs Route: PO; mg2 19:16 Follow up: Response: No adverse reaction; Pain is decreased mg2 18:34 Drug: TORadol 30 mg Route: IM; Site: right gluteus; mg2 19:16 Follow up: Response: No adverse reaction; Pain is decreased mg2 19:38 Drug: Decadron 10 mg Route: IM; Site: right gluteus; mg2 20:09 Follow up: Response: No adverse reaction; Marked relief of symptoms mg2 Disposition: 01/03/19 19:50 Discharged to Home. Impression: Sprain of hip. - Condition is Stable. - Discharge Instructions: Hip Pain. - Prescriptions for Prednisone 20 mg Oral Tablet - take 3 tablet by ORAL route once daily for 5 days; 15 tablet. orphenadrine citrate 100 mg Oral Tablet Sustained Release - take 1 tablet by ORAL route 2 times per day As needed; 20 tablet. - Medication Reconciliation Form, Thank You Letter, Antibiotic Education, Prescription Opioid Use form. - Follow up: Cristobal Matamoros MD; When: 2 - 3 days; Reason: Recheck today's complaints, Continuance of care, Re-evaluation by your physician. Signatures: Dispatcher [employer] EDMS Issac Boyer PA PA [facility] Tere Kc, FLOR RN Rodri Carlos RN RN mg2 Corrections: (The following items were deleted from the chart) 19:38 19:33 Crutches ordered. [facility] mg2 20:12 19:50 01/03/2019 19:50 Discharged to Home. Impression: Sprain of hip. Condition is mg2 Stable. Forms are Medication Reconciliation Form, Thank You Letter, Antibiotic Education, Prescription Opioid Use. Follow up: Cristobal Matamoros; When: 2 - 3 days; Reason: Recheck today's complaints, Continuance of care, Re-evaluation by your physician. [facility]
[2019-01-03 20:18] VITALS: O2SAT 100
[2019-01-03 20:22] VITALS: BP 120/78; TEMP 98.5
== END 2019-01-03 20:12 | disposition home or self-care (01) ==
LOC: ER 17:42
DX: S73.102A Unspecified sprain of left hip, initial encounter (principal); X58.XXXA Exposure to other specified factors, initial encounter; Y93.89 Activity, other specified; Y92.9 Unspecified place or not applicable; F31.9 Bipolar disorder, unspecified; F41.9 Anxiety disorder, unspecified
CPT/HCPCS: 81025; 81003; 73502; 96372; 99284; J1100

== ENCOUNTER 2019-02-21 02:02 | Emergency (ER) | payer OTHER ==
--- OUTSIDE RECORDS SUMMARY | 2019-02-21 02:04 | XMS REPORT ---
:1985 Author Organization [employer] Care Team Providers Name Role Phone Edil Araceli Provider Role Unavailable Allergies, Adverse Reactions, Alerts Substance Reaction Event Type N.K.D.A. Info Not Available Non Drug Allergy Problems Problem Type Condition Code Onset Dates Condition Status Problem Seasonal allergic rhinitis, J30.2 Active unspecified trigger Problem Cough R05 Active Assessment Seasonal allergic rhinitis, J30.2 Active unspecified trigger Assessment Cough R05 Active Medications Medication Code System Code Instructions Start Date End Date Status Dosage Singulair NDC [address] Active not defined -30 Xyzal NDC 0 Active not defined Albuterol NDC 0 [place] [address] Active not defined -01 Tylenol NDC 0 Active not defined Results Name Result Date Reference Range Unit Abnormality Flag STREP A RAPID ----Result Negative [id number] Summary Purpose [employer] Submission
[2019-02-21] MEDS ORDERED: METOCLOPRAMIDE 10 MG/2mL INJ ONE (02:35)
[2019-02-21] MEDS ORDERED: DIPHENHYDRAMINE 50 MG/ML VIAL ONE (02:35)
[2019-02-21] MEDS ORDERED: LORazepam 2 MG/ML VIAL ONE (02:35)
[2019-02-21] MEDS ORDERED: NA CHLORIDE 0.9% 1,000 ML ONE (02:35)
[2019-02-21] MEDS ORDERED: KETOROLAC 30 MG/ML INJ ONE (02:35)
[2019-02-21 03:31] LABS: Absolute Lymphocytes (CBC) 2.7 K/uL (0.7-4.9); Basophils % 0.5 % (0-1.3); Hematocrit 36.4 % (36.0-45.0); Lymphocytes % 27.9 % (15.3-44.8); MPV 8.7 fL (7.6-11.3); RBC Red Blood Cell Count 4.13 M/uL (3.86-4.86)
[2019-02-21 03:32] LABS: Protime INR 0.91
[2019-02-21 03:43] LABS: ALT/SGPT 20 U/L (12-78); AST/SGOT 10 U/L (15-37); Albumin 3.5 g/dL (3.4-5.0); Alkaline Phosphatase 82 U/L (45-117); BUN Blood Urea Nitrogen 15 mg/dL (7-18); Bicarbonate 24 mmol/L (21-32); Bilirubin Direct 0.1 mg/dL (0-0.2); Bilirubin Total 0.3 mg/dL (0.2-1.0); Glucose Level 95 mg/dL (74-106); Potassium 4.2 mmol/L (3.5-5.1); Protein, Total 6.5 g/dL (6.4-8.2); Sodium Level 141 mmol/L (136-145)
[2019-02-21 03:43] LABS: Barbiturates NEGATIVE (NEGATIVE); Benzodiazepines POSITIVE (NEGATIVE); Cocaine NEGATIVE (NEGATIVE); METHAMPHETAM NEGATIVE (NEGATIVE); Methadone NEGATIVE (NEGATIVE); Opiates NEGATIVE (NEGATIVE); Phencyclidine NEGATIVE (NEGATIVE); THC Cannibis POSITIVE (NEGATIVE)
--- NOTE | 2019-02-21 05:12 | EDPHYS ---
Physician Documentation [facility] Name: Tash Peña Age: 33 yrs Sex: Female : 1985 Arrival Date: 02/21/2019 Time: 02:05 Bed 5 Private MD: NATANAEL Physician Mj Paredes HPI: 02/21 02:27 This 33 yrs old Female presents to ER via Ambulatory with complaints of nathan Anxiety. 02:27 The patient complains of pain to the top of head, forehead, left frontal area, left nathan side of the back of head, left occipital area, left base of the skull, right frontal area, right side of the back of head, right occipital area and right base of the skull. The patient describes the headache as aching, constant. Onset: The symptoms/episode began/occurred 2 day(s) ago. The patient presents to the emergency department with anxiety, over a , the patient's mother, depression. Onset: The symptoms/episode began/occurred 3 day(s) ago. Past psychiatric history: Prior diagnosis: bipolar disorder, depression. Associated signs and symptoms: The patient has no apparent associated signs or symptoms. Severity of symptoms: At its worst the pain was moderate, in the emergency department the pain is unchanged. Headache History: The patient has had previous headaches and this one is similar to previous episodes. [employer]IE[employer]: 02:13 LMP 01/24/2019 ak1 Historical: - Allergies: 02:18 No Known Allergies; ak1 - Home Meds: 02:18 Abilify oral oral [Active]; Zoloft Oral [Active]; Trileptal oral oral [Active]; ak1 Hydroxyzine Oral [Active]; - PMHx: 02:18 Anxiety; Migraines; Depression; Bipolar disorder; ak1 - PSHx: 02:18 ; Cholecystectomy; Tonsillectomy; ak1 - Immunization history:: Adult Immunizations unknown. - Social history:: Smoking status: Patient uses tobacco products, smokes one pack cigarettes per day. Patient/guardian denies using alcohol, street drugs. - Ebola Screening: : No symptoms or risks identified at this time. ROS: 02:30 Constitutional: Negative for fever, chills, and weight loss, Eyes: Negative for injury, ntahan pain, redness, and discharge, ENT: Negative for injury, pain, and discharge, Neck: Negative for injury, pain, and swelling, Cardiovascular: Negative for chest pain, palpitations, and edema, Respiratory: Negative for shortness of breath, cough, wheezing, and pleuritic chest pain, Abdomen/GI: Negative for abdominal pain, nausea, vomiting, diarrhea, and constipation, Back: Negative for injury and pain, : Negative for injury, bleeding, discharge, and swelling, MS/Extremity: Negative for injury and deformity, Skin: Negative for injury, rash, and discoloration, Psych: Negative for depression, anxiety, suicide ideation, homicidal ideation, and hallucinations, Allergy/Immunology: Negative for hives, rash, and allergies, Endocrine: Negative for neck swelling, polydipsia, polyuria, polyphagia, and marked weight changes, Hematologic/Lymphatic: Negative for swollen nodes, abnormal bleeding, and unusual bruising. 02:30 Neuro: Positive for headache. 02:30 Psych: Positive for anxiety, depression. Exam: 02:30 Constitutional: This is a well developed, well nourished patient who is awake, alert, nathan and in no acute distress. Head/Face: Normocephalic, atraumatic. Eyes: Pupils equal round and reactive to light, extra-ocular motions intact. Lids and lashes normal. Conjunctiva and sclera are non-icteric and not injected. Cornea within normal limits. Periorbital areas with no swelling, redness, or edema. ENT: Nares patent. No nasal discharge, no septal abnormalities noted. Tympanic membranes are normal and external auditory canals are clear. Oropharynx with no redness, swelling, or masses, exudates, or evidence of obstruction, uvula midline. Mucous membranes moist. Neck: Trachea midline, no thyromegaly or masses palpated, and no cervical lymphadenopathy. Supple, full range of motion without nuchal rigidity, or vertebral point tenderness. No Meningismus. Chest/axilla: Normal chest wall appearance and motion. Nontender with no deformity. No lesions are appreciated. Cardiovascular: Regular rate and rhythm with a normal S1 and S2. No gallops, murmurs, or rubs. Normal PMI, no JVD. No pulse deficits. Respiratory: Lungs have equal breath sounds bilaterally, clear to auscultation and percussion. No rales, rhonchi or wheezes noted. No increased work of breathing, no retractions or nasal flaring. Abdomen/GI: Soft, non-tender, with normal bowel sounds. No distension or tympany. No guarding or rebound. No evidence of tenderness throughout. Back: No spinal tenderness. No costovertebral tenderness. Full range of motion. Female : Normal external genitalia. Skin: Warm, dry with normal turgor. Normal color with no rashes, no lesions, and no evidence of cellulitis. MS/ Extremity: Pulses equal, no cyanosis. Neurovascular intact. Full, normal range of motion. Neuro: Awake and alert, GCS 15, oriented to person, place, time, and situation. Cranial nerves II-XII grossly intact. Motor strength 5/5 in all extremities. Sensory grossly intact. Cerebellar exam normal. Normal gait. Psych: Awake, alert, with orientation to person, place and time. Behavior, mood, and affect are within normal limits. 02:30 Neck: ROM/movement: is normal, no acute changes, Meningeal signs: are not present, Kernig's sign is negative, Brudzinski's sign is negative. Vital Signs: 02:13 BP 110 / 76; Pulse 102; Resp 18; Temp 97.9(TE); Pulse Ox 99% on R/A; Weight 81.65 kg ak1 (R); Height 5 ft. 7 in. (170.18 cm) (R); Pain 7/10; 03:00 BP 93 / 54; Pulse 88; Resp 16; Pulse Ox 100% ; rr5 04:05 BP 91 / 54; Pulse 93; Resp 16; Pulse Ox 98% ; rr5 05:33 BP 94 / 56; Pulse 85; Resp 16; Temp 98; Pulse Ox 99% ; Pain 5/10; rr5 02:13 Body Mass Index 28.19 (81.65 kg, 170.18 cm) ak1 MDM: 02:09 Patient medically screened. [facility] 02:30 Data reviewed: vital signs, nurses notes, lab test result(s), EKG, radiologic studies, [facility] plain films. 02/21 02:23 Order name: Acetaminophen; Complete Time: 05:10 [facility] 02/21 02:23 Order name: Basic Metabolic Panel; Complete Time: 05:10 [facility] 02/21 02:23 Order name: CBC with Diff; Complete Time: 05:10 [facility] 02/21 02:24 Order name: ETOH Level; Complete Time: 05:10 [facility] 02/21 02:24 Order name: Hepatic Function; Complete Time: 05:10 [facility] 02/21 02:24 Order name: PT-INR; Complete Time: 05:10 [facility] 02/21 02:24 Order name: Ptt, Activated; Complete Time: 05:10 [facility] 02/21 02:24 Order name: Salicylate; Complete Time: 05:10 [facility] 02/21 02:24 Order name: Urine Drug Screen; Complete Time: 05:10 [facility] 02/21 02:24 Order name: EKG; Complete Time: 02:25 [facility] 02/21 02:24 Order name: EKG - Nurse/Tech; Complete Time: 02:57 [facility] 02/21 02:24 Order name: IV Saline Lock; Complete Time: 02:57 [facility] 02/21 02:24 Order name: Labs collected and sent; Complete Time: 02:57 [facility] 02/21 02:24 Order name: Urine Dipstick-Ancillary (obtain specimen); Complete Time: 02:57 [facility] 02/21 02:24 Order name: Urine Test (obtain specimen); Complete Time: 02:57 [facility] Administered Medications: 02:50 Drug: NS 0.9% 1000 ml Route: IV; Rate: 1 bolus; Site: right antecubital; rr5 04:25 Follow up: Response: No adverse reaction; IV Status: Completed infusion; IV Intake: rr5 1000ml 02:51 Drug: Reglan 10 mg Route: IVP; Site: right antecubital; rr5 04:00 Follow up: Response: No adverse reaction rr5 02:53 Drug: Benadryl 50 mg Route: IVP; Site: right antecubital; rr5 04:00 Follow up: Response: No adverse reaction; Pain is decreased rr5 02:55 Drug: TORadol 30 mg Route: IVP; Site: right antecubital; rr5 04:00 Follow up: Response: Pain is decreased rr5 02:57 Drug: Ativan 1 mg Route: IVP; Site: right antecubital; rr5 04:00 Follow up: Response: No adverse reaction rr5 Disposition: 02/21/19 05:11 Discharged to Home. Impression: Anxiety disorder, unspecified, Bipolar disorder, Migraine. - Condition is Stable. - Discharge Instructions: Bipolar Disorder, Generalized Anxiety Disorder. - Prescriptions for Fioricet with Codeine 50- 325-40-30 mg Oral capsule - take 1 capsule by ORAL route every 4 hours as needed not to exceed 6 capsules per 24hrs; 20 capsule. Xanax 0.5 mg Oral Tablet - take 1 tablet by ORAL route every 8 hours As needed; 20 tablet. Zofran 4 mg Oral Tablet - take 1 tablet by ORAL route every 12 hours As needed; 20 tablet. - Medication Reconciliation Form, Thank You Letter, Antibiotic Education, Prescription Opioid Use form. - Follow up: Private Physician; When: 2 - 3 days; Reason: Recheck today's complaints, Continuance of care, Re-evaluation by your physician. - Problem is new. - Symptoms have improved. Signatures: Dispatcher [employer] EDMS Mj Paredes MD MD cha Krenek, Amber RN RN ak1 Azael Adair RN RN rr5 Corrections: (The following items were deleted from the chart) 05:44 05:11 02/21/2019 05:11 Discharged to Home. Impression: Anxiety disorder, unspecified; rr5 Bipolar disorder; Migraine. Condition is Stable. Discharge Instructions: Bipolar Disorder, Generalized Anxiety Disorder. Prescriptions for Fioricet with Codeine [id number] mg Oral capsule - take 1 capsule by ORAL route every 4 hours as needed not to exceed 6 capsules per 24hrs; 20 capsule, Xanax 0.5 mg Oral Tablet - take 1 tablet by ORAL route every 8 hours As needed; 20 tablet, Zofran 4 mg Oral Tablet - take 1 tablet by ORAL route every 12 hours As needed; 20 tablet. and Forms are Medication Reconciliation Form, Thank You Letter, Antibiotic Education, Prescription Opioid Use. Follow up: Private Physician; When: 2 - 3 days; Reason: Recheck today's complaints, Continuance of care, Re-evaluation by your physician. Problem is new. Symptoms have improved. nathan
--- NOTE | 2019-02-21 05:12 | ER ---
Nurse's Notes [facility] Name: Tash Peña Age: 33 yrs Sex: Female : 1985 Arrival Date: 02/21/2019 Time: 02:05 Bed 5 Private MD: Diagnosis: Anxiety disorder, unspecified;Bipolar disorder;Migraine Presentation: 02/21 02:14 Presenting complaint: Patient states: migraine started at 1999. pt c/o manic episode, ak1 insomnia, racing thoughts, anxiety. pt see Dahlia Hernandez at [facility] [place]. Transition of care: patient was not received from another setting of care. Onset of symptoms is unknown. Risk Assessment: Do you want to hurt yourself or someone else? Patient reports no desire to harm self or others. Initial Sepsis Screen: Does the patient meet any 2 criteria? No. Patient's initial sepsis screen is negative. Does the patient have a suspected source of infection? No. Patient's initial sepsis screen is negative. Care prior to arrival: None. 02:14 Method Of Arrival: Ambulatory ak1 02:14 Acuity: MABLE 3 ak1 Triage Assessment: 02:18 General: Appears in no apparent distress. Behavior is calm, cooperative, anxious. Pain: ak1 Complains of pain in headache. EENT: No signs and/or symptoms were reported regarding the EENT system. Neuro: Level of Consciousness is awake, alert, obeys commands, Oriented to person, place, time, situation, Appropriate for age Merchandise Deliverer are equal bilaterally Moves all extremities. Full function Gait is steady, Speech is normal. Cardiovascular: No deficits noted. Respiratory: No deficits noted. GI: No signs and/or symptoms were reported involving the gastrointestinal system. : No signs and/or symptoms were reported regarding the genitourinary system. Derm: No signs and/or symptoms reported regarding the dermatologic system. Musculoskeletal: No signs and/or symptoms reported regarding the musculoskeletal system. 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 - Social history:: Smoking status: Patient uses tobacco products, smokes one pack cigarettes per day. Patient/guardian denies using alcohol, street drugs. - Ebola Screening: : No symptoms or risks identified at this time. Screenin:19 Abuse screen: Denies threats or abuse. Denies injuries from another. Nutritional ak1 screening: No deficits noted. Tuberculosis screening: No symptoms or risk factors identified. Fall Risk None identified. Assessment: 02:15 General: Appears in no apparent distress. uncomfortable, Behavior is. rr5 02:15 Pain: Complains of pain in head Pain does not radiate. Pain currently is 7 out of 10 on rr5 a pain scale. Quality of pain is described as aching, Pain began gradually, Is intermittent. Neuro: Level of Consciousness is awake, alert, obeys commands, Oriented to person, place, time, situation, Appropriate for age Reports headache anxiety attack. Cardiovascular: Capillary refill < 3 seconds Patient's skin is warm and dry. Respiratory: Airway is patent Respiratory effort is even, unlabored, Respiratory pattern is regular, symmetrical. GI: No signs and/or symptoms were reported involving the gastrointestinal system. : No signs and/or symptoms were reported regarding the genitourinary system. EENT: No signs and/or symptoms were reported regarding the EENT system. Derm: Skin is intact, is healthy with good turgor, Skin temperature is warm. Musculoskeletal: Circulation, motion, and sensation intact. Capillary refill < 3 seconds. 03:00 Reassessment: Patient appears in no apparent distress at this time. Patient and/or rr5 family updated on plan of care and expected duration. Pain level reassessed. Patient is alert, oriented x 3, equal unlabored respirations, skin warm/dry/pink. 04:00 Reassessment: Patient appears in no apparent distress at this time. Patient is alert, rr5 oriented x 3, equal unlabored respirations, skin warm/dry/pink. eyes closed breathing spontaneously at room air. 05:15 Reassessment: Patient appears in no apparent distress at this time. Patient is alert, rr5 oriented x 3, equal unlabored respirations, skin warm/dry/pink. discharge instruction given and explained without complaints made, verbalized understanding. Patient states feeling better. Patient states symptoms have improved. Vital Signs: 02:13 BP 110 / 76; Pulse 102; Resp 18; Temp 97.9(TE); Pulse Ox 99% on R/A; Weight 81.65 kg ak1 (R); Height 5 ft. 7 in. (170.18 cm) (R); Pain 7/10; 03:00 BP 93 / 54; Pulse 88; Resp 16; Pulse Ox 100% ; rr5 04:05 BP 91 / 54; Pulse 93; Resp 16; Pulse Ox 98% ; rr5 05:33 BP 94 / 56; Pulse 85; Resp 16; Temp 98; Pulse Ox 99% ; Pain 5/10; rr5 02:13 Body Mass Index 28.19 (81.65 kg, 170.18 cm) ak1 ED Course: 02:05 Patient arrived in ED. cl3 02:09 Mj Paredes MD is Attending Physician. nathan 02:13 Arm band placed on Patient placed in an exam room, on a stretcher, on pulse oximetry, ak1 Patient notified of wait time. 02:15 Triage completed. ak1 02:19 Patient has correct armband on for positive identification. Bed in low position. Call ak1 light in reach. Side rails up X 1. Adult w/ patient. Pulse ox on. NIBP on. 02:29 Azael dAair, RN is Primary Nurse. rr5 02:45 EKG done, by ED staff, reviewed by Mj Paredes MD. rr5 02:50 Inserted saline lock: 20 gauge in right antecubital area, using aseptic technique. rr5 Blood collected. 02:59 cafeteria monitor on. rr5 05:34 No provider procedures requiring assistance completed. IV discontinued, intact, rr5 bleeding controlled, No redness/swelling at site. Pressure dressing applied. Administered Medications: 02:50 Drug: NS 0.9% 1000 ml Route: IV; Rate: 1 bolus; Site: right antecubital; rr5 04:25 Follow up: Response: No adverse reaction; IV Status: Completed infusion; IV Intake: rr5 1000ml 02:51 Drug: Reglan 10 mg Route: IVP; Site: right antecubital; rr5 04:00 Follow up: Response: No adverse reaction rr5 02:53 Drug: Benadryl 50 mg Route: IVP; Site: right antecubital; rr5 04:00 Follow up: Response: No adverse reaction; Pain is decreased rr5 02:55 Drug: TORadol 30 mg Route: IVP; Site: right antecubital; rr5 04:00 Follow up: Response: Pain is decreased rr5 02:57 Drug: Ativan 1 mg Route: IVP; Site: right antecubital; rr5 04:00 Follow up: Response: No adverse reaction rr5 Intake: 04:25 IV: 1000ml; Total: 1000ml. rr5 Outcome: 05:11 Discharge ordered by MD. evans 05:34 Discharged to home ambulatory. rr5 05:34 Condition: stable 05:34 Discharge instructions given to patient, Instructed on discharge instructions, follow up and referral plans. medication usage, Demonstrated understanding of instructions, follow-up care, medications, Prescriptions given X 3. 05:44 Patient left the ED. rr5 Signatures: Mj Paredes MD MD cha Krenek, Amber RN RN ak1 Azael Adair RN RN rr5 Matt Ramirez cl3
--- NOTE | 2019-02-21 06:03 | EKG ---
Test Date: 2019-02-21 Test Time: 02:42:16 Rn Bone Marrow Transplant: RR MEASUREMENT RESULTS: Intervals: Rate: 94 MS: 200 QRSD: 78 QT: 360 QTc: 450 [place]: P: 61 MS: 200 QRS: 27 T: 15 INTERPRETIVE STATEMENTS: Normal sinus rhythm Normal ECG Compared to ECG 07/31/2016 17:30:11 T-wave abnormality no longer present Electronically Signed On 02-21-19 06:02:22 SPORTS TRAINER by Harish Davidson
[2019-02-21 06:59] VITALS: BP 94/56; TEMP 98; O2SAT 99
== END 2019-02-21 05:44 | disposition home or self-care (01) ==
LOC: ER 02:02
DX: G43.909 Migraine, unspecified, not intractable, without status migrainosus (principal); F31.9 Bipolar disorder, unspecified; F17.210 Nicotine dependence, cigarettes, uncomplicated
CPT/HCPCS: 96361; 93005; 85025; 80048; 36415; 80320; 80329 ×2; 85610; 80076; 80307 ×8; 85730; 96375; 96374; 99284; J2765; J1200; J7030

== ENCOUNTER 2019-02-23 04:23 | Emergency (ER) | payer OTHER ==
--- OUTSIDE RECORDS SUMMARY | 2019-02-23 04:25 | XMS REPORT ---
[...] Date End Date Status Dosage Singulair NDC [address] Active not defined -30 Xyzal NDC 0 Active not defined Albuterol NDC 0 [place] [address] Active not defined -01 Tylenol NDC 0 Active not defined Results Name Result Date Reference Range Unit Abnormality Flag STREP A RAPID ----Result Negative [id number] Summary Purpose eClinicalWorks Submission
[2019-02-23 05:13] LABS: Absolute Lymphocytes (CBC) 3.3 K/uL (0.7-4.9); Basophils % 0.4 % (0-1.3); Hematocrit 39.5 % (36.0-45.0); Lymphocytes % 28.9 % (15.3-44.8); MPV 8.4 fL (7.6-11.3)
[2019-02-23] MEDS ORDERED: KETOROLAC 30 MG/ML INJ ONE (05:34)
[2019-02-23 05:56] LABS: Barbiturates NEGATIVE (NEGATIVE); Benzodiazepines POSITIVE (NEGATIVE); Cocaine NEGATIVE (NEGATIVE); METHAMPHETAM NEGATIVE (NEGATIVE); Methadone NEGATIVE (NEGATIVE); Opiates NEGATIVE (NEGATIVE); Phencyclidine NEGATIVE (NEGATIVE); THC Cannibis POSITIVE (NEGATIVE)
[2019-02-23 06:01] LABS: ALT/SGPT 21 U/L (12-78); AST/SGOT 11 U/L (15-37); Alkaline Phosphatase 82 U/L (45-117); BUN Blood Urea Nitrogen 11 mg/dL (7-18); Bicarbonate 27 mmol/L (21-32); Bilirubin Direct < 0.1 mg/dL (0-0.2); Bilirubin Total 0.3 mg/dL (0.2-1.0); Glucose Level 84 mg/dL (74-106); Potassium 3.7 mmol/L (3.5-5.1); Protein, Total 7.6 g/dL (6.4-8.2); Sodium Level 139 mmol/L (136-145)
[2019-02-23] MEDS ORDERED: LORazepam 2 MG/ML VIAL ONE (06:03)
--- NOTE | 2019-02-23 07:49 | ER ---
Nurse's Notes [facility] Name: Tash Peña Age: 33 yrs Sex: Female : 1985 Arrival Date: 02/23/2019 Time: 04:24 Bed 5 Private MD: Diagnosis: Suicidal ideations Presentation: 02/23 04:38 Presenting complaint: Patient states: her mother 2 weeks ago and since then aa1 she has been feeling depressed and anxious. Reports she was seen here 2 days ago and prescribed Xanax but now she is beginning to have suicidal thoughts and her psychiatrist told her she should come to the ED to be evaluated for possible transfer to inpatient facility. States, "I just want to . I don't have any plan on how I would do it but I do have a gun in my house and I'm afraid I'm going to get to the point where I end up doing something.". Transition of care: patient was not received from another setting of care. Onset of symptoms was February 22, 2019. Risk Assessment: Do you want to hurt yourself or someone else? Patient reports desire/thoughts of hurting themselves or someone else. Provider notified. Initial Sepsis Screen: Does the patient meet any 2 criteria? No. Patient's initial sepsis screen is negative. Does the patient have a suspected source of infection? No. Patient's initial sepsis screen is negative. Care prior to arrival: None. 04:38 Method Of Arrival: Ambulatory aa1 04:38 Acuity: MABLE 2 aa1 Triage Assessment: 04:43 General: Appears in no apparent distress. comfortable, Behavior is calm, cooperative, aa1 appropriate for age. 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 - Social history:: Smoking status: Patient uses tobacco products, smokes one pack cigarettes per day. Patient/guardian denies using alcohol, street drugs, IV drugs. - Ebola Screening: : No symptoms or risks identified at this time. Screenin:45 Abuse screen: Denies threats or abuse. Nutritional screening: No deficits noted. ea Tuberculosis screening: No symptoms or risk factors identified. Fall Risk None identified. Assessment: 04:46 General: Appears in no apparent distress. Behavior is calm, cooperative, appropriate ea for age. Pain: Denies pain. Neuro: Level of Consciousness is awake, alert, obeys commands, Oriented to person, place, time, situation. Cardiovascular: Patient's skin is warm and dry. Respiratory: Airway is patent Respiratory effort is even, unlabored, Respiratory pattern is regular, symmetrical. Derm: Skin is pink, warm \\T\\ dry. Musculoskeletal: Circulation, motion, and sensation intact. 05:48 Reassessment: Patient and/or family updated on plan of care and expected duration. Pain ea level reassessed. Patient is alert, oriented x 3, equal unlabored respirations, skin warm/dry/pink. Pt refused PO Ativan states "I don't want to take an Ativan pill, it doesn't work, I need IV Ativan, that works, I know my body!" Pt crying uncontrollably, states "If I get an Ativan pill I am leaving, there is no point of me taking pills, they don't work, IV works for me!" Provider notified that pt refused PO Ativan. 06:17 Reassessment: Patient and/or family updated on plan of care and expected duration. Pain ea level reassessed. Patient is alert, oriented x 3, equal unlabored respirations, skin warm/dry/pink. 06:40 Reassessment: Nurse to nurse report given to Genia RAY at [facility], reported ea physician will call back for Doc to Doc report. 06:47 Reassessment: Nurse to Nurse report called to Tay Garza, reported physician ea would call back for Doc to Doc. 06:50 Reassessment: Patient and/or family updated on plan of care and expected duration. Pain ea level reassessed. Patient is alert, oriented x 3, equal unlabored respirations, skin warm/dry/pink. 07:00 Reassessment: Pt resting in bed with eyes closed. Respirations even and unlabored. Skin aa5 is pink/warm dry. . 08:10 Reassessment: Patient is alert, oriented x 3, equal unlabored respirations, skin aa5 warm/dry/pink. Pt sitting up in bed eating breakfast. Pt's at bedside. Pt notified of acceptance to [facility] [place] and wait time for EMS for transfer, pt verbalizes understanding. . Psych: 04:43 Subjective: Patient's mood is sad, Delusions are denied, Having thoughts of suicide. ea Objective: Patient is cooperative, Speech is normal, Affect is appropriate. Interventions: Removed personal items and placed in bag. Patient placed in hospital gown. Searched person for dangerous items. Urine collected and sent for urine drug test. Suicide Risk Assessment: Sad Person Scale: Sex of patient: Female: Score 0 points. Age of patient: Score 1 point if patient 15-34. Depression: Score 1 point if signs of depression are present. Previous Attempt: Score 0 point if patient has not previously attempted suicide. Substance Abuse: Score 0 point if patient does not abuse alcohol or drugs. Rational Thinking: Score 0 point if patient has rational thinking. Social Support: Score 0 if social support is present/available. Organized Plan: Score 0 if patient did not have an organized plan in place. Safety Checks: Personal items have been removed. Door is open. Visitors are present. Pt denies substance abuse. 04:57 Commitment: Patient will be a voluntary commitment. ea Vital Signs: 04:43 BP 126 / 81; Pulse 91; Resp 16; Temp 98.2(O); Pulse Ox 100% on R/A; Weight 81.65 kg; aa1 Height 5 ft. 4 in. (162.56 cm); Pain 6/10; 05:14 BP 104 / 62; Pulse 85; Resp 16; Pulse Ox 99% on R/A; mt 05:53 BP 110 / 66; Pulse 85; Resp 18; Pulse Ox 100% on R/A; ea 06:49 BP 104 / 70; Pulse 80; Resp 18; Temp 97.8(TE); Pulse Ox 100% ; ea 08:00 BP 109 / 69; Pulse 87; Resp 16 S; Temp 98.0(TE); Pulse Ox 99% on R/A; aa5 04:43 Body Mass Index 30.90 (81.65 kg, 162.56 cm) aa1 ED Course: 04:24 Patient arrived in ED. ag3 04:30 Safety checks: Items removed: yes. Door open/sign placed on door: yes. Family/friend mt present: yes. Sitter present: Yes. 04:42 Triage completed. aa1 04:43 Kathia Valencia, FLOR is Primary Nurse. ea 04:43 Arm band placed on right wrist. Patient placed in an exam room, on a stretcher. aa1 04:45 Patient has correct armband on for positive identification. Placed in gown. Bed in low ea position. Adult w/ patient. 04:45 Safety checks: Items removed: yes. Door open/sign placed on door: yes. Family/friend mt present: yes. Sitter present: Yes. 04:49 Inserted saline lock: 20 gauge in right antecubital area, using aseptic technique. mt Blood collected. 04:51 Erick Zarco MD is Attending Physician. tw4 05:00 Safety checks: Items removed: yes. Door open/sign placed on door: yes. Family/friend mt present: yes. Sitter present: Yes. 05:15 Safety checks: Items removed: yes. Door open/sign placed on door: yes. Family/friend mt present: yes. Sitter present: Yes. 05:30 Safety checks: Items removed: yes. Door open/sign placed on door: yes. Family/friend mt present: yes. Sitter present: Yes. 05:39 [facility] [place] notified for an GABRIELLE on pt. mw2 05:45 Safety checks: Items removed: yes. Door open/sign placed on door: yes. Family/friend mt present: yes. Sitter present: Yes. 06:00 Safety checks: Items removed: yes. Door open/sign placed on door: yes. Family/friend mt present: yes. Sitter present: Yes. 06:15 Safety checks: Items removed: yes. Door open/sign placed on door: yes. Family/friend mt present: yes. Sitter present: Yes. 06:30 Safety checks: Items removed: yes. Door open/sign placed on door: yes. Family/friend mt present: yes. Sitter present: Yes. 07:00 Safety checks: Items removed: yes. Door open/sign placed on door: yes. Family/friend dh3 present: no. Sitter present: Yes. 07:15 Safety checks: Items removed: yes. Door open/sign placed on door: yes. Family/friend dh3 present: no. Sitter present: Yes. 07:18 Attending Physician role handed off by Erick Zarco MD rn 07:18 Jhonatan Hudson MD is Attending Physician. rn 07:30 Safety checks: Items removed: yes. Door open/sign placed on door: yes. Family/friend dh3 present: no. Sitter present: Yes. 07:45 Safety checks: Items removed: yes. Door open/sign placed on door: yes. Family/friend dh3 present: no. Sitter present: Yes. 08:00 Safety checks: Items removed: yes. Door open/sign placed on door: yes. Family/friend dh3 present: no. Sitter present: Yes. 08:10 pt accepted at [facility] [place] by dr mihaela belle. bd 08:15 Safety checks: Items removed: yes. Door open/sign placed on door: yes. Family/friend dh3 present: no. Sitter present: Yes. 08:24 No provider procedures requiring assistance completed. IV discontinued, intact, aa5 bleeding controlled, No redness/swelling at site. Pressure dressing applied. Administered Medications: 05:43 Drug: TORadol 30 mg Route: IVP; Site: right antecubital; ea 06:16 Follow up: Response: No adverse reaction ea 05:51 Not Given (Patient Refused): Ativan 1 mg PO once ea 06:16 Drug: Ativan 0.25 mg Route: IVP; Site: right antecubital; ea Outcome: 07:48 ER care complete, transfer ordered by . rn 08:24 Transferred by ground EMS Transfer form completed. Note: [facility] [place]. Report aa5 given to [facility] 08:24 Condition: stable 08:24 Discharge instructions given to patient, Instructed on the need for transfer, Demonstrated understanding of instructions. 08:26 Patient left the ED. aa5 Signatures: Ying Hopkins Alissa, RN RN aa1 Jhonatan Hudson MD MD rn Calderon, Audri, RN RN aa5 Awa Barth tx Natty Sosa 3 Kathia Valencia RN RN ea Wadley, Terrence, MD MD 4 [place], [employer] mw2 Kennedi Hoffmann ag3 Corrections: (The following items were deleted from the chart) 05:53 05:48 Reassessment: Patient and/or family updated on plan of care and expected ea duration. Pain level reassessed. Patient is alert, oriented x 3, equal unlabored respirations, skin warm/dry/pink. Pt refused PO Ativan states "I don't want to take an Ativan pill, it doesn't work, I need IV Ativan, that works, I know my body!" Pt crying uncontrollably, states "If I get an Ativan pill I am leaving, there is no point of me taking pills, they don't work, IV works for me!" ea
[2019-02-23 07:50] LABS: Urine Blood NEGATIVE (NEG); Urine Glucose NEGATIVE (NEG); Urine Protein NEGATIVE (NEG); Urine pH 5.5 (5.0-7.0)
--- NOTE | 2019-02-23 07:50 | EDPHYS ---
Physician Documentation [facility] Name: Tash Peña Age: 33 yrs Sex: Female : 1985 Arrival Date: 02/23/2019 Time: 04:24 Bed 5 Private MD: ED Physician Jhonatan Hudson HPI: 02/23 05:38 This 33 yrs old Female presents to ER via Ambulatory with complaints of tw4 Suicidal Ideation, Anxiety. 05:38 The patient presents to the emergency department with anxiety, depression, over a tw4 relationship, in the family. Onset: The symptoms/episode began/occurred today. Past psychiatric history: Prior diagnosis: depression, Psychiatric medications include: Xanax, Zoloft. Associated signs and symptoms: The patient has no apparent associated signs or symptoms. Severity of symptoms: At their worst the symptoms were moderate in the emergency department the symptoms are unchanged. The patient has not experienced similar symptoms in the past. 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 - Social history:: Smoking status: Patient uses tobacco products, smokes one pack cigarettes per day. Patient/guardian denies using alcohol, street drugs, IV drugs. - Ebola Screening: : No symptoms or risks identified at this time. ROS: 05:38 Constitutional: Negative for fever, chills, and weight loss, Eyes: Negative for injury, tw4 pain, redness, and discharge, Cardiovascular: Negative for chest pain, palpitations, and edema, Respiratory: Negative for shortness of breath, cough, wheezing, and pleuritic chest pain, Abdomen/GI: Negative for abdominal pain, nausea, vomiting, diarrhea, and constipation, Back: Negative for injury and pain, MS/Extremity: Negative for injury and deformity, Skin: Negative for injury, rash, and discoloration. 05:38 Neuro: Positive for 05:38 Psych: Positive for anxiety, depression, suicide gesture, suicidal ideation. Exam: 05:34 Constitutional: This is a well developed, well nourished patient who is awake, alert, tw4 and in no acute distress. Head/Face: Normocephalic, atraumatic. Chest/axilla: Normal chest wall appearance and motion. Nontender with no deformity. No lesions are appreciated. Cardiovascular: Regular rate and rhythm with a normal S1 and S2. No gallops, murmurs, or rubs. Normal PMI, no JVD. No pulse deficits. Respiratory: Lungs have equal breath sounds bilaterally, clear to auscultation and percussion. No rales, rhonchi or wheezes noted. No increased work of breathing, no retractions or nasal flaring. Abdomen/GI: Soft, non-tender, with normal bowel sounds. No distension or tympany. No guarding or rebound. No evidence of tenderness throughout. MS/ Extremity: Pulses equal, no cyanosis. Neurovascular intact. Full, normal range of motion. Neuro: Awake and alert, GCS 15, oriented to person, place, time, and situation. Cranial nerves II-XII grossly intact. Motor strength 5/5 in all extremities. Sensory grossly intact. Cerebellar exam normal. Normal gait. Vital Signs: 04:43 BP 126 / 81; Pulse 91; Resp 16; Temp 98.2(O); Pulse Ox 100% on R/A; Weight 81.65 kg; aa1 Height 5 ft. 4 in. (162.56 cm); Pain 6/10; 05:14 BP 104 / 62; Pulse 85; Resp 16; Pulse Ox 99% on R/A; mt 05:53 BP 110 / 66; Pulse 85; Resp 18; Pulse Ox 100% on R/A; ea 06:49 BP 104 / 70; Pulse 80; Resp 18; Temp 97.8(TE); Pulse Ox 100% ; ea 08:00 BP 109 / 69; Pulse 87; Resp 16 S; Temp 98.0(TE); Pulse Ox 99% on R/A; aa5 04:43 Body Mass Index 30.90 (81.65 kg, 162.56 cm) aa1 MDM: 04:51 Patient medically screened. tw4 07:47 Differential diagnosis: depression, suicidal ideation. Data reviewed: vital signs, rn nurses notes, lab test result(s), EKG, and as a result, I will admit patient. Counseling: I had a detailed discussion with the patient and/or guardian regarding: the historical points, exam findings, and any diagnostic results supporting the discharge/admit diagnosis, lab results, the need to transfer to another facility. Response to treatment: the patient's symptoms have mildly improved after treatment, and as a result, I will admit patient. ED course: Accepted for transfer to [facility]. . 02/23 04:48 Order name: Acetaminophen; Complete Time: 07: 02/23 04:48 Order name: Basic Metabolic Panel; Complete Time: 07: 02/23 04:48 Order name: CBC with Diff; Complete Time: 07: 02/23 04:48 Order name: ETOH Level; Complete Time: 07: 02/23 04:48 Order name: Hepatic Function; Complete Time: 07: 02/23 04:48 Order name: PT-INR; Complete Time: 07:02/23 04:48 Order name: Ptt, Activated; Complete Time: 07:02/23 04:48 Order name: Salicylate; Complete Time: 07: 02/23 04:48 Order name: Urine Drug Screen; Complete Time: 07:16 02/23 05:05 Order name: Urine Dipstick--Ancillary (enter results); Complete Time: 08:04 [facility] 02/23 05:05 Order name: Urine --Ancillary (enter results); Complete Time: 08:04 02/23 04:48 Order name: Urine Test (obtain specimen); Complete Time: 04:50 02/23 04:48 Order name: EKG; Complete Time: 04:50 02/23 04:48 Order name: EKG - Nurse/Tech; Complete Time: 04:50 02/23 04:48 Order name: IV Saline Lock; Complete Time: 04:49 02/23 04:48 Order name: Labs collected and sent; Complete Time: 04:49 02/23 04:48 Order name: Urine Dipstick-Ancillary (obtain specimen); Complete Time: 04:50 jb4 02/23 06:28 Order name: Diet Finger Food; Complete Time: 06:28 mw2 EC:34 Rate is 89 beats/min. Rhythm is regular. QRS [place] is Normal. GA interval is normal. QRS tw4 interval is normal. QT interval is normal. No Q waves. T waves are Normal. No ST changes noted. Interpreted by me. Reviewed by me. Administered Medications: 05:43 Drug: TORadol 30 mg Route: IVP; Site: right antecubital; ea 06:16 Follow up: Response: No adverse reaction ea 05:51 Not Given (Patient Refused): Ativan 1 mg PO once ea 06:16 Drug: Ativan 0.25 mg Route: IVP; Site: right antecubital; ea Disposition: 02/23/19 07:48 Transfer ordered to Psych Facility. Diagnosis is Suicidal ideations. - Reason for transfer: Higher level of care. - Accepting physician is . - Condition is Stable. - Problem is an ongoing problem. - Symptoms have improved. Signatures: Dispatcher [employer] EDRosi Caldwell RN RN aa1 Jhonatan Hudson MD MD rn Calderon, Audri, RN RN aa5 Akbar Christopher RN RN jb4 Kathia Valencia RN RN Erick Childress MD MD tw4 Corrections: (The following items were deleted from the chart) 08:26 07:48 02/23/2019 07:48 Transfer ordered to Psych Facility. Diagnosis is Suicidal aa5 ideations. Reason for transfer: Higher level of care. Accepting physician is . Condition is Stable. Problem is an ongoing problem. Symptoms have improved. rn
[2019-02-23 08:58] VITALS: BP 109/69; TEMP 98; O2SAT 99
--- NOTE | 2019-02-23 10:34 | EKG ---
Test Date: 2019-02-23 Test Time: 04:55:53 Music Typographer: SAIDA MEASUREMENT RESULTS: Intervals: Rate: 89 AL: 212 QRSD: 80 QT: 366 QTc: 445 [place]: P: 60 AL: 212 QRS: 36 T: 26 INTERPRETIVE STATEMENTS: Sinus rhythm with 1st degree AV block Otherwise normal ECG Compared to ECG 02/21/2019 02:42:16 First degree AV block now present Electronically Signed On 02-23-19 10:33:30 SENIOR QA ENGINEER by Yuriy Spears
== END 2019-02-23 08:26 ==
LOC: ER 04:23
DX: R45.851 Suicidal ideations (principal); F41.9 Anxiety disorder, unspecified; F31.9 Bipolar disorder, unspecified; F17.210 Nicotine dependence, cigarettes, uncomplicated
CPT/HCPCS: 36415; 80048; 80076; 80307; 80320; 80329; 81003; 81025; 85025; 85610; 85730; 93005; 96374; 96375; 99285

== ENCOUNTER 2019-07-17 17:39 | Emergency (ER) | payer OTHER ==
--- OUTSIDE RECORDS SUMMARY | 2019-07-17 17:41 | XMS REPORT ---
:1985 Author Organization eClinicalWorks Care Team Providers Name Role Phone Edil Araceli Provider Role Unavailable Allergies, Adverse Reactions, Alerts Substance Reaction Event Type N.K.D.A. Info Not Available Non Drug Allergy Problems Problem Type Condition Code Onset Dates Condition Statu s Problem Seasonal allergic rhinitis, J30.2 Active unspecified trigger Problem Cough R05 Active Assessment Seasonal allergic rhinitis, J30.2 Active unspecified trigger Assessment Cough R05 Active Medications Medication Code System Code Instructions Start Date End Date Status Dosage Singulair [facility] [address] Active not defined -30 Xyzal NDC 0 Active not defined Albuterol NDC 0 [place] [address] Active not define d -01 Tylenol NDC 0 Active not defined Results Name Result Date Reference Range Unit Abnormali ty Flag STREP A RAPID ----Result Negative [id number] Summary Purpose eClinicalWorks Submission
--- OUTSIDE RECORDS SUMMARY | 2019-07-17 17:41 | XMS REPORT | Summary of Care ---
:1985 Author Organization [place] [address] Care Team Providers Name Role Phone Temi Rojas Primary Care Provider Reason for Visit Reason Comments Medical Concern Encounter Details Date Type Department Care Team Description 05/04/2019 Office Visit [facility], Marilyn Hays edical Concern Medicine Urology [address] [place] [address] 10th [address], [address], [place] [address] [place] [address] [phone] Allergies No Known Allergiesdocumented as of this encounter (statuses as of 05/04/2019) Medications Medication Sig Dispensed Refills Start Date End Date Status cefdinir (OMNICEF) 300 Take 300 mg by 0 Active MG capsule mouth two times daily. PROAIR HFA 0 Active diazepam (VALIUM) 5 MG Take 2 mg by 0 Active tablet mouth every 12 hours as needed for Anxiety. venlafaxine (EFFEXOR) Take 37.5 mg by 0 Active 37.5 MG tablet mouth 3 times daily. 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 documented as of this encounter Last Filed Vital Signs Vital Sign Reading Time Taken Comments Blood Pressure 112/70 05/04/2019 11:50 AM ATLASSIAN ADMINISTRATOR Pulse 68 05/04/2019 11:50 AM ATLASSIAN ADMINISTRATOR Temperature 36.7 C (98.1 F) 05/04/2019 11:50 AM ATLASSIAN ADMINISTRATOR Respiratory Rate - - Oxygen Saturation - - Inhaled Oxygen Concentration - - Weight 95.3 kg (210 lb) 05/04/2019 11:50 AM ATLASSIAN ADMINISTRATOR Height 162.6 cm (5' 4") 05/04/2019 11:50 AM ATLASSIAN ADMINISTRATOR Body Mass Index 36.05 05/04/2019 11:50 AM ATLASSIAN ADMINISTRATOR documented in this encounter Progress Notes Birttaney Tellez MA - 05/04/2019 1:46 PM CSTReview of Systems Constitutional: Positive for activity change. HENT: Negative. Eyes: Negative. Respiratory: Positive for cough and wheezing. Cardiovascular: Negative. Gastrointestinal: Negative. Endocrine: Negative. Genitourinary: Positive for frequency. Musculoskeletal: Negative. Allergic/Immunologic: Negative. Neurological: Negative. SSIAN ADMINISTRATOR Vish Hinds MD - 05/04/2019 10:30 AM CST Referring Physician Anshul Sanchez MD [address] [facility] 10[address], [place] [address] Patient Name: Tash Peña :1985 [facility] ID#:[id number] Ms. Peña is a 34 y.o. year old female who present to me for evaluation. Pt with h/o AGATA and had UDS and workup in [place] for sling but still wanted to have kids. Now finished childbearing and AGATA worse. No nocturia, no Urgency or urge incontinencde. Uses depends. Leaks with cough/sneezing/laughing. Past Medical History: Diagnosis Date Anxiety Asthma Depression Environmental allergies Past Surgical History: Procedure Laterality Date HX SECTION HX GALLBLADDER REMOVAL HX TONSILLECTOMY Medications No outpatient medications prior to visit. No facility-administered medications prior to visit. No current outpatient medications on file. Social History Socioeconomic History Marital status: Spouse name: Not on file Number of children: Not on file Years of education: Not on file Highest education level: Not on file Occupational History Not on file Social Needs Financial resource strain: Not on file Food insecurity: Worry: Not on file Inability: Not on file Transportation needs: Medical: Not on file Non-medical: Not on file Tobacco Use Smoking status: Current Every Day Smoker Years: 2.00 Smokeless tobacco: Never Used Substance and Sexual Activity Alcohol use: Not Currently Drug use: Not on file Sexual activity: Not on file Lifestyle Physical activity: Days per week: Not on file Minutes per session: Not on file Stress: Not on file Relationships Social connections: Talks on phone: Not on file Gets together: Not on file Attends mormon service: Not on file Active member of club or organization: Not on file Attends meetings of clubs or organizations: Not on file Relationship status: Not on file Intimate partner violence: Fear of current or ex partner: Not on file Emotionally abused: Not on file Physically abused: Not on file Forced sexual activity: Not on file Other Topics Concerns: Not on file Social History Narrative Not on file family history includes Breast Cancer in her mother. No Known Allergies Review of Systems: Constitutional: Positive for activity change. HENT: Negative. Eyes: Negative. Respiratory: Positive for cough and wheezing. Cardiovascular: Negative. Gastrointestinal: Negative. Endocrine: Negative. Genitourinary: Positive for frequency. Musculoskeletal: Negative. Allergic/Immunologic: Negative. Neurological: Negative. Physical Exam: Vitals: see in note above GENERAL: Well developed, well nourished, in no acute distress HEAD: Normocephalic and atraumatic . CHEST Regular respiratory rate CV Regular rate and rhythm ABDOMEN: Soft and non-tender without masses, BACK: No CVAT PELVIC EXAM Vulva: Normal appearance, normal hair distribution, no lesions or masses. Urethra: Normal, no masses, non-tender, no discharge. Bladder: Normal, no masses, non-tender, non-distended. Vagina: Normal, ruggated, physiologic discharge, no lesions, no masses, no cystocele, adequate pelvic support, + AGATA with valsalva with urethral hypermobility EXTREMITIES: No clubbing, cyanosis, edema, or deformity SKIN: Intact without lesions or rashes NEURO: SAINI well. Patient alert and oriented x3. PSYCH: Alert and cooperative; normal mood and affect; normal attention span and concentration Most Recent Labs: No results found for this or any previous visit (from the past 4032 hour(s)). Urinalysisneg PVR: 123 ml Most Recent Imaging: No images are attached to the encounter. Assessment: 1. AGATA with urethral hypermobility Plan: 1. Schedule TOT Obtryx II sling. SSIAN ADMINISTRATOR documented in this encounter Plan of Treatment Health Maintenance Due Date Last Done Comments TETANUS SHOT (ADULT) 1999 BMI FOLLOW UP PLAN 2002 HIV SCREENING 2002 CERVICAL CANCER SCREENING 3 YEAR FOLLOW UP 2005 FLU VACCINE > 6 MONTHS 10/15/2018 documented as of this encounter Results Not on filedocumented in this encounter Visit Diagnoses Diagnosis AGATA (stress urinary incontinence, female ) - Primary Female stress incontinence documented in this encounter Insurance Payer Benefit Plan / Subscriber ID Effective Dates Phone Addre ss Type Group [facility] OPEN xxxxxxxxxxx 2014-Ashwini [address] PPO ACCESS - [place] [id number] documented as of this encounter
--- OUTSIDE RECORDS SUMMARY | 2019-07-17 17:41 | XMS REPORT ---
:1985 Author Organization eClinicalWorks Care Team Providers Name Role Phone Ladan Meredith Provider Role Unavailable Allergies, Adverse Reactions, Alerts Substance Reaction Event Type N.K.D.A. Info Not Available Non Drug Allergy Problems Problem Type Condition Code Onset Dates Condition Statu s Problem Seasonal allergic rhinitis, J30.2 Active unspecified trigger Problem Cough R05 Active Problem Stress incontinence N39.3 Active Assessment Stress incontinence N39.3 Active Medications Medication Code Code Instructions Start End Status Dosage System Date Date Albuterol [facility] [id number] Active not define d Abilify [facility] 93843405746 5 MG Orally Active 1 tablet Once a day Robitussin [address] [facility] 12320439651 30 MG/5ML Active 10 m l as Hour Cough Orally every 12 neede d hrs Singulair [facility] 00604377013 Active not define d Tylenol NDC 0 Active not defined Trileptal [facility] 18055156382 150 MG Orally Active 2 ta blets Twice a day ProAir HFA [facility] [address]-00 Active not def ined Cefdinir [facility] 78960991377 300 MG Orally Active as di rected Xyzal ND 0 Active not defined Results No Known Results Summary Purpose [facility] Submission
--- OUTSIDE RECORDS SUMMARY | 2019-07-17 17:41 | XMS REPORT ---
:1985 Author Organization [facility] Address [address] [place] [address] Dr. Lyons [address] [place] [address] Care Team Providers Name Role Phone Unavailable Unavailable Unavailable Problems Condition Condition Condition Status Onset Resolution Last Treatin g Comments Name Details Category Date Date Treatment Clinician Date Seasonal Seasonal Problem Active allergic allergic rhinitis, rhinitis, unspecified unspecified trigger trigger Cough Cough Problem Active Stress Stress Diagnosis Active incontinenc incontinenc e e Allergies, Adverse Reactions, Alerts This patient has no known allergies or adverse reactions. Medications Ordered Filled Start Stop Current Ordering Indication Dosage Frequency Signature Comments Components Medication Medication Date Date Medication? Clinician (SIG) Name Name Xyzal Xyzal Yes Ladan not Viri defined ProAir HFA ProAir HFA Yes Ladan not Viri defined Tylenol Tylenol Yes Ladan not [place] defined Albuterol Albuterol Yes Ladan not [place] defined Abilify Abilify Yes Ladan 1 tablet [place] Robitussin Robitussin Yes Ladan 10 ml as 12 Hour 12 Hour [place] needed Cough Cough Singulair Singulair Yes Ladan not [place] defined Trileptal Trileptal Yes Ladan 2 tablets [place] Cefdinir Cefdinir Yes Ladan as Viri directed Encounters Start End Encounter Admission Attending Care Care Encounter Date/Time Date/Time Type Type Clinicians Facility Department ID 2019-04-27 2019-04-27 [id number] 13:00:00 13:00:00 Specialty/U Specialty/U [facility] 2018-10-04 2018-10-04 [id number] 09:15:00 09:15:00 Urgent Care [facility] Clinic
[2019-07-17] MEDS ORDERED: KETOROLAC 30 MG/ML INJ ONE (18:28)
[2019-07-17] MEDS ORDERED: DIPHENHYDRAMINE 50 MG/ML VIAL ONE (18:28)
[2019-07-17] MEDS ORDERED: dexAMETHasone 10 MG/ML VIAL ONE (18:28)
[2019-07-17] MEDS ORDERED: METOCLOPRAMIDE 10 MG/2mL INJ ONE (18:28)
[2019-07-17] MEDS ORDERED: NA CHLORIDE 0.9% 1,000 ML ONE (18:28)
[2019-07-17] MEDS ORDERED: ONDANSETRON 4 MG/2 ML VIAL ONE (19:45)
[2019-07-17] MEDS ORDERED: MORPHINE 4 MG/ML SYR ONE (19:45)
--- NOTE | 2019-07-17 20:12 | EDPHYS ---
Physician Documentation [facility] Name: Tash Peña Age: 34 yrs Sex: Female : 1985 Arrival Date: 07/17/2019 Time: 17:41 Bed 5 Private MD: ED Physician Jhonatan Hudson HPI: 07/16 18:07 This 34 yrs old Female presents to ER via Ambulatory with complaints of kb Headache > 24hrs Old. 18:07 The patient complains of pain to the forehead. The patient describes the headache as kb constant. Onset: The symptoms/episode began/occurred 5 day(s) ago. Associated signs and symptoms: Pertinent positives: nausea, Photophobia vomiting, Pertinent negatives: fever, neck stiffness. Severity of symptoms: At its worst the pain was moderate, in the emergency department the pain is unchanged. Headache History: The patient has had previous headaches and this one is similar to previous episodes. The symptoms are alleviated by nothing. the symptoms are aggravated by lights. The patient has experienced similar episodes in the past. The patient has not recently seen a physician. Pt reports she has had a migraine for 5 days. States they normally go away after a day or two, but this one has continued. No relief with OTC medications. 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 - Social history:: Smoking status: Patient denies any tobacco usage or history of. ROS: 18:07 Constitutional: Negative for fever, chills, and weight loss, ENT: Negative for injury, kb pain, and discharge, Neck: Negative for injury, pain, and swelling, Cardiovascular: Negative for chest pain, palpitations, and edema, Respiratory: Negative for shortness of breath, cough, wheezing, and pleuritic chest pain, Back: Negative for injury and pain, MS/Extremity: Negative for injury and deformity, Skin: Negative for injury, rash, and discoloration. 18:07 Abdomen/GI: Positive for nausea and vomiting, Negative for abdominal pain, diarrhea, constipation, abdominal cramps, abdominal distension, anorexia. 18:07 Neuro: Positive for headache, Negative for altered mental status, dizziness, gait disturbance, hearing loss, loss of consciousness, numbness, seizure activity, speech changes, syncope, near syncope, tingling, tinnitus, tremor, visual changes, weakness. Exam: 18:11 Constitutional: This is a well developed, well nourished patient who is awake, alert, kb and in no acute distress. Head/Face: Normocephalic, atraumatic. Eyes: Pupils equal round and reactive to light, extra-ocular motions intact. Lids and lashes normal. Conjunctiva and sclera are non-icteric and not injected. Cornea within normal limits. Periorbital areas with no swelling, redness, or edema. ENT: Nares patent. No nasal discharge, no septal abnormalities noted. Tympanic membranes are normal and external auditory canals are clear. Oropharynx with no redness, swelling, or masses, exudates, or evidence of obstruction, uvula midline. Mucous membranes moist. Neck: Trachea midline, no thyromegaly or masses palpated, and no cervical lymphadenopathy. Supple, full range of motion without nuchal rigidity, or vertebral point tenderness. No Meningismus. Chest/axilla: Normal chest wall appearance and motion. Nontender with no deformity. No lesions are appreciated. Cardiovascular: Regular rate and rhythm with a normal S1 and S2. No gallops, murmurs, or rubs. Normal PMI, no JVD. No pulse deficits. Respiratory: Lungs have equal breath sounds bilaterally, clear to auscultation and percussion. No rales, rhonchi or wheezes noted. No increased work of breathing, no retractions or nasal flaring. Abdomen/GI: Soft, non-tender, with normal bowel sounds. No distension or tympany. No guarding or rebound. No evidence of tenderness throughout. Skin: Warm, dry with normal turgor. Normal color with no rashes, no lesions, and no evidence of cellulitis. MS/ Extremity: Pulses equal, no cyanosis. Neurovascular intact. Full, normal range of motion. Neuro: Awake and alert, GCS 15, oriented to person, place, time, and situation. Cranial nerves II-XII grossly intact. Motor strength 5/5 in all extremities. Sensory grossly intact. Cerebellar exam normal. Normal gait. Vital Signs: 17:56 BP 125 / 95; Pulse 93; Resp 16; Temp 97.8(O); Pulse Ox 100% ; Weight 90.72 kg (R); iw Height 5 ft. 4 in. (162.56 cm); Pain 10/10; 20:06 BP 120 / 70; Pulse 79; Resp 14; Pulse Ox 99% on R/A; Pain 8/10; ls4 17:56 Body Mass Index 34.33 (90.72 kg, 162.56 cm) iw [place] Coma Score: 18:11 Eye Response: spontaneous(4). Verbal Response: oriented(5). Motor Response: obeys kb commands(6). Total: 15. MDM: 17:57 Patient medically screened. kb 18:11 Data reviewed: vital signs, nurses notes. Data interpreted: Pulse oximetry: on room air kb is 100 %. Interpretation: normal. 20:11 Counseling: I had a detailed discussion with the patient and/or guardian regarding: the kb historical points, exam findings, and any diagnostic results supporting the discharge/admit diagnosis, lab results, radiology results, the need for outpatient follow up, a neurologist, to return to the emergency department if symptoms worsen or persist or if there are any questions or concerns that arise at home. Response to treatment: the patient's symptoms have mildly improved after treatment. ED course: Pt reports she used to see a neurologist at a Headache center in [place] and plans to follow up with them. . 02 17:58 Order name: IV Start; Complete Time: 18:19 kb Administered Medications: 18:22 Drug: NS 0.9% 1000 ml Route: IV; Rate: 1000 ml; Site: right antecubital; aa5 18:22 Drug: Benadryl 12.5 mg Route: IVP; Site: right antecubital; aa5 18:30 Follow up: Response: No adverse reaction aa5 18:22 Drug: TORadol - Ketorolac 15 mg Route: IVP; Site: right antecubital; aa5 18:30 Follow up: Response: No adverse reaction aa5 18:23 Drug: Decadron - Dexamethasone 10 mg Route: IVP; Site: right antecubital; aa5 18:30 Follow up: Response: No adverse reaction aa5 18:24 Drug: Reglan 10 mg Route: IVP; Site: right antecubital; aa5 18:30 Follow up: Response: No adverse reaction aa5 19:45 Drug: morphine 4 mg Route: IVP; Site: right antecubital; ls4 20:15 Follow up: Response: No adverse reaction; Marked relief of symptoms ls4 19:45 Drug: Zofran (Ondansetron) 4 mg Route: IVP; Site: right antecubital; ls4 20:14 Follow up: Response: No adverse reaction ls4 20:45 Drug: Fioricet - Esgic 325 mg-40 mg-50 mg 1 tab-caps Route: PO; lp1 20:45 Follow up: Response: Medication administered at discharge. lp1 Disposition: 07/17 07:06 Co-signature as Attending Physician, Jhonatan Hudson MD. rn Disposition: 07/17/19 20:12 Discharged to Home. Impression: Migraine. - Condition is Stable. - Discharge Instructions: Migraine Headache, [id number]. - Medication Reconciliation Form, Thank You Letter, Antibiotic Education, Prescription Opioid Use form. - Follow up: Emergency Department; When: As needed; Reason: Worsening of condition. Follow up: Private Physician; When: 2 - 3 days; Reason: Recheck today's complaints, Continuance of care, Re-evaluation by your physician. Signatures: Cynthia Kaur, HOT METAL CRANE OPERATOR-C HOT METAL CRANE OPERATOR-Ckb Angie Gutierrez, Jhonatan Walter RN, MD MD rn Calderon, Audri, RN RN aa5 Juanis Angulo RN RN lp1 Kaitlin Mott RN RN ls4 Corrections: (The following items were deleted from the chart) 07/16 18:11 18:07 Associated signs and symptoms: Pertinent positives: nausea, Photophobia Pertinent kb negatives: fever, neck stiffness, kb 20:46 20:12 07/17/2019 20:12 Discharged to Home. Impression: Migraine. Condition is Stable. lp1 Forms are Medication Reconciliation Form, Thank You Letter, Antibiotic Education, Prescription Opioid Use. Follow up: Emergency Department; When: As needed; Reason: Worsening of condition. Follow up: Private Physician; When: 2 - 3 days; Reason: Recheck today's complaints, Continuance of care, Re-evaluation by your physician. kb
--- NOTE | 2019-07-17 20:12 | ER ---
Nurse's Notes [facility] Name: Tash Peña Age: 34 yrs Sex: Female : 1985 Arrival Date: 07/17/2019 Time: 17:41 Bed 5 Private MD: Diagnosis: Migraine Presentation: 07/16 17:54 Chief complaint: Patient states: migraine X 5 days, worse today, has been taking her iw old migraine medicine with no relief, +nausea/vomiting and visual disturbance. Coronavirus screen: Proceed with normal triage. Patient denies a cough. Patient denies shortness of breath or difficulty breathing. Patient denies measured and/or subjective temperature greater than 100.4F prior to today's visit. Patient denies travel on a cruise ship or to a country the [facility] currently lists as an affected area. Patient denies contact with known and/or suspected case of COVID-19. Ebola Screen: Patient negative for fever greater than or equal to 101.5 degrees Fahrenheit, and additional compatible Ebola Virus Disease symptoms Patient denies exposure to infectious person. Patient denies travel to an Ebola-affected area in the 21 days before illness onset. No symptoms or risks identified at this time. Initial Sepsis Screen: Does the patient meet any 2 criteria? No. Patient's initial sepsis screen is negative. Does the patient have a suspected source of infection? No. Patient's initial sepsis screen is negative. Risk Assessment: Do you want to hurt yourself or someone else? Patient reports no desire to harm self or others. Onset of symptoms was July 13, 2019. 17:54 Method Of Arrival: Ambulatory iw 17:54 Acuity: MABLE 3 iw Triage Assessment: 19:06 Headache History: The patient has had previous headaches and this one is similar to ls4 previous episodes. General: Appears in no apparent distress. comfortable. General: Appears Behavior is calm, cooperative, PT DOES NOT REQUEST FOR LIGHT TO BE TURNED DOWN AND IS NOT BOTHERED BY MONITOR BEEPING. PT STATES THAT SHE HAS BEEN HOSPITALIZED MULTIPLE TIMES FOR PAIN CONTROL OF HER MIGRAINES. PT STATES THAT SHE HAD A HEADACHE DR IN [place] BUT DOES NOT HAVE ONE HERE. PT SPEAKS IN FULL VOLUME, USES HEAD MOVEMENT GESTURES, BLINKS AND IS USING HANDS WHILE EXPLAINING HEADACHE HISTORY IN DETAIL. PT IS NOT GRIMACING, SQUINTING OR GUARDING HER HEAD OR EYES. PT IS LOOKING AT CELL PHONE WITHOUT DIFFICULTY. . Pain: Pain currently is 10 out of 10 on a pain scale. Pain began 2-3 days ago. Also complains of no other associated symptoms. Neuro: Reports headache frontal area. Cardiovascular: Denies chest pain. Respiratory: Airway is patent Respiratory effort is even, unlabored, Breath sounds are clear bilaterally. Derm: Skin is pink, warm \T\ dry. 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 - Social history:: Smoking status: Patient denies any tobacco usage or history of. Screenin:05 Abuse screen: Denies threats or abuse. Denies injuries from another. Nutritional ls4 screening: No deficits noted. Tuberculosis screening: No symptoms or risk factors identified. Fall Risk None identified. Assessment: 18:17 General: Appears in no apparent distress. comfortable, Behavior is calm, cooperative. ls4 Pain: Complains of pain in forehead. Neuro: Oriented to person, place, time, situation. Cardiovascular: No deficits noted. Respiratory: No deficits noted. GI: No deficits noted. : No deficits noted. Derm: No deficits noted. Musculoskeletal: No deficits noted. No signs and/or symptoms reported regarding the musculoskeletal system. 18:22 Reassessment: Patient is alert, oriented x 3, equal unlabored respirations, skin aa5 warm/dry/pink. 20:06 Reassessment: Patient appears in no apparent distress at this time. Patient and/or ls4 family updated on plan of care and expected duration. Pain level reassessed. Patient is alert, oriented x 3, equal unlabored respirations, skin warm/dry/pink. Patient states symptoms have improved. 20:45 Reassessment: Patient is alert, oriented x 3, equal unlabored respirations, skin lp1 warm/dry/pink. Patient states feeling better. Vital Signs: 17:56 BP 125 / 95; Pulse 93; Resp 16; Temp 97.8(O); Pulse Ox 100% ; Weight 90.72 kg (R); iw Height 5 ft. 4 in. (162.56 cm); Pain 10/10; 20:06 BP 120 / 70; Pulse 79; Resp 14; Pulse Ox 99% on R/A; Pain 8/10; ls4 17:56 Body Mass Index 34.33 (90.72 kg, 162.56 cm) iw [place] Coma Score: 18:11 Eye Response: spontaneous(4). Verbal Response: oriented(5). Motor Response: obeys kb commands(6). Total: 15. ED Course: 17:41 Patient arrived in ED. ag5 17:56 Triage completed. iw 17:57 Cynthia Kaur FNP-C is [facility]. kb 17:57 Jhonatan Hudson MD is Attending Physician. kb 17:57 Arm band placed on. iw 18:16 Kaitlin Mott, FLOR is Primary Nurse. ls4 18:19 Bed in low position. Call light in reach. Side rails up X 1. Door closed. Noise lt1 minimized. Lights dimmed. Warm blanket given. 18:19 Inserted saline lock: 22 gauge in right antecubital area, using aseptic technique. lt1 20:07 No provider procedures requiring assistance completed. ls4 20:45 IV discontinued, No redness/swelling at site. Pressure dressing applied. lp1 Administered Medications: 18:22 Drug: NS 0.9% 1000 ml Route: IV; Rate: 1000 ml; Site: right antecubital; aa5 18:22 Drug: Benadryl 12.5 mg Route: IVP; Site: right antecubital; aa5 18:30 Follow up: Response: No adverse reaction aa5 18:22 Drug: TORadol - Ketorolac 15 mg Route: IVP; Site: right antecubital; aa5 18:30 Follow up: Response: No adverse reaction aa5 18:23 Drug: Decadron - Dexamethasone 10 mg Route: IVP; Site: right antecubital; aa5 18:30 Follow up: Response: No adverse reaction aa5 18:24 Drug: Reglan 10 mg Route: IVP; Site: right antecubital; aa5 18:30 Follow up: Response: No adverse reaction aa5 19:45 Drug: morphine 4 mg Route: IVP; Site: right antecubital; ls4 20:15 Follow up: Response: No adverse reaction; Marked relief of symptoms ls4 19:45 Drug: Zofran (Ondansetron) 4 mg Route: IVP; Site: right antecubital; ls4 20:14 Follow up: Response: No adverse reaction ls4 20:45 Drug: Fioricet - Esgic 325 mg-40 mg-50 mg 1 tab-caps Route: PO; lp1 20:45 Follow up: Response: Medication administered at discharge. lp1 Outcome: 20:12 Discharge ordered by . kb 20:45 Discharged to home ambulatory. lp1 20:45 Condition: good 20:45 Discharge instructions given to patient, Instructed on discharge instructions, follow up and referral plans. Demonstrated understanding of instructions, follow-up care. 20:46 Patient left the ED. lp1 Signatures: Cynthia Kaur, DIRECTOR OF FIELD COORDINATION-C DIRECTOR OF FIELD COORDINATION-Ckb Angie Gutierrez, RN RN Valentina Stuart, RN RN aa5 Juanis Angulo RN RN lp1 Kaitlin Mott RN RN ls4 Kelvin Mayer 5 Molly Saunders 1 Corrections: (The following items were deleted from the chart) 17:57 17:56 BP 125 / 95; Pulse 93bpm; Resp 16bpm; Pulse Ox 100%; Temp 97.8F Oral; iw iw 20:02 08:45 Zofran (Ondansetron) 4 mg IVP in right antecubital ls4 ls4 20:02 19:45 morphine 4 mg IVP in left antecubital ls4 ls4
[2019-07-17] MEDS ORDERED: ACETAMIN/CAFFEINE/BUTALB TAB PO ONE (20:44)
[2019-07-17 21:13] VITALS: BP 120/70; O2SAT 99
[2019-07-17 21:14] VITALS: TEMP 97.8
== END 2019-07-17 20:46 | disposition home or self-care (01) ==
LOC: ER 17:39
DX: G43.909 Migraine, unspecified, not intractable, without status migrainosus (principal)
CPT/HCPCS: 96375; 96374; 99283; J2765; J1200; J1100; J7030; J2405

== ENCOUNTER 2019-07-18 12:58 | Emergency (ER) | payer OTHER ==
--- OUTSIDE RECORDS SUMMARY | 2019-07-18 13:00 | XMS REPORT ---
:1985 Author Organization [facility] Address [address] [place] [address] Dr. Lyons [address] [place] [id number] Care Team Providers Name Role Phone Unavailable [...] Viri defined Tylenol Tylenol Yes Ladan not [place] defined Albuterol Albuterol Yes Ladan not [place] defined Abilify Abilify Yes Ladan 1 tablet [place] Robitussin Robitussin Yes Ladan 10 ml as 12 Hour 12 Hour [place] needed Cough Cough Singulair Singulair Yes Ladan not [place] defined Trileptal Trileptal Yes Ladan 2 tablets [place] Cefdinir Cefdinir Yes Ladan as Viri directed Encounters Start End Encounter Admission Attending Care Care Encounter Date/Time Date/Time Type Type Clinicians Facility Department ID 2019-04-27 2019-04-27 [facility] [id number] 13:00:00 13:00:00 Specialty/U Specialty/U rology rology Clinic Clinic 2018-10-04 2018-10-04 [facility] [id number] 09:15:00 09:15:00 Urgent Care [facility] Clinic
--- OUTSIDE RECORDS SUMMARY | 2019-07-18 13:01 | XMS REPORT ---
[...] End Status Dosage System Date Date Albuterol [facility] 46992371305 Active not define d Abilify [facility] 24985067701 5 MG Orally Active 1 tablet Once a day Robitussin [address] [facility] 34590087849 30 MG/5ML Active 10 m l as Hour Cough Orally every 12 neede d hrs Singulair [facility] 29160864272 Active not define d Tylenol NDC 0 Active not defined Trileptal [facility] 67034844770 150 MG Orally Active 2 ta blets Twice a day ProAir HFA [facility] [address]-19 Active not def ined Cefdinir [facility] 05031142952 300 MG Orally Active as di rected Xyzal ND 0 Active not defined Results No Known Results Summary Purpose [facility]
--- OUTSIDE RECORDS SUMMARY | 2019-07-18 13:01 | XMS REPORT ---
[...] Start Date End Date Status Dosage Singulair [facility] [address] Active not defined -30 Xyzal NDC 0 Active not defined Albuterol NDC 0 [place] [address] Active not define d -01 Tylenol NDC 0 Active not defined Results Name Result Date Reference Range Unit Abnormali ty Flag STREP A RAPID ----Result Negative [id number] Summary Purpose [employer]ClinicalWorks Submission
[2019-07-18] MEDS ORDERED: METOCLOPRAMIDE 10 MG/2mL INJ ONE (14:23)
[2019-07-18] MEDS ORDERED: ONDANSETRON 4 MG/2 ML VIAL ONE (14:23)
[2019-07-18] MEDS ORDERED: DIPHENHYDRAMINE 50 MG/ML VIAL ONE (14:23)
[2019-07-18] MEDS ORDERED: MEPERIDINE HCL 25 MG/0.5 ML ONE ×2 (14:23→16:34)
[2019-07-18] MEDS ORDERED: NA CHLORIDE 0.9% 1,000 ML ONE (14:23)
[2019-07-18 14:31] LABS: Urine Blood TRACE (NEG); Urine Glucose NEGATIVE (NEG); Urine Protein NEGATIVE (NEG)
[2019-07-18 14:51] LABS: Absolute Lymphocytes (CBC) 0.9 K/uL (0.7-4.9); Basophils % 0.2 % (0-1.3); Hematocrit 41.6 % (36.0-45.0); Lymphocytes % 5.1 % (15.3-44.8); MPV 9.3 fL (7.6-11.3); RBC Red Blood Cell Count 4.76 M/uL (3.86-4.86)
[2019-07-18 15:03] LABS: BUN Blood Urea Nitrogen 9 mg/dL (7-18); Bicarbonate 23 mmol/L (21-32); Glucose Level 124 mg/dL (74-106); Potassium 3.9 mmol/L (3.5-5.1); Sodium Level 142 mmol/L (136-145)
--- NOTE | 2019-07-18 16:18 | ER ---
Nurse's Notes [facility] Name: Tash Peña Age: 34 yrs Sex: Female : 1985 Arrival Date: 07/18/2019 Time: 13:00 Bed 19 Private MD: Diagnosis: Headache Presentation: 07/17 13:16 Chief complaint: Patient states: "I've been having a migraine for 6 days now and I aa5 can't take it anymore". pt reports being seen here last night and reports being seen at [facility] this morning with a negative Head CT scan and reports being given a "steroid, reglan, zofran, toradol, and Imitrex at [facility]". Pt reports she has not seen a neurologist in about 4 years. 13:16 Acuity: MABLE 3 aa5 13:16 Method Of Arrival: Ambulatory aa5 13:16 Coronavirus screen: Proceed with normal triage. Patient denies a cough. Patient denies aa5 shortness of breath or difficulty breathing. Patient denies measured and/or subjective temperature greater than 100.4F prior to today's visit. Patient denies travel on a cruise ship or to a country the [facility] currently lists as an affected area. Patient denies contact with known and/or suspected case of COVID-19. Ebola Screen: Patient negative for fever greater than or equal to 101.5 degrees Fahrenheit, and additional compatible Ebola Virus Disease symptoms. Initial Sepsis Screen: Does the patient meet any 2 criteria? HR > 90 bpm. Does the patient have a suspected source of infection? No. Patient's initial sepsis screen is negative. Risk Assessment: Do you want to hurt yourself or someone else? Patient reports no desire to harm self or others. Onset of symptoms was June 2019. Triage Assessment: 13:34 Headache History: The patient has had previous headaches and this one is similar to ca1 previous episodes. General: Appears in no apparent distress. comfortable, Behavior is calm, cooperative, appropriate for age. Pain: Complains of pain in right base of the skull and left parietal area. 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 - Social history:: Smoking status: Patient reports the use of cigarette tobacco products, denies chronic smoking, but will smoke occasionally. Screenin:20 Abuse screen: Denies threats or abuse. Denies injuries from another. Nutritional ca1 screening: No deficits noted. Tuberculosis screening: No symptoms or risk factors identified. Fall Risk IV access (20 points). Assessment: 13:20 General: Appears in no apparent distress. comfortable, Behavior is calm, cooperative, ca1 appropriate for age. Pain: Complains of pain in left parietal area and right base of the skull Pain currently is 9 out of 10 on a pain scale. Pain: Pain began 6 days ago Also complains of nausea. Neuro: Level of Consciousness is awake, alert, obeys commands, Oriented to person, place, time, situation, Appropriate for age. Neuro: Lehr Stripper are equal bilaterally Moves all extremities. Gait is steady, Speech is normal, Facial symmetry appears normal, Pupils are PERRLA, Intact. Cardiovascular: Heart tones S1 S2 present. Respiratory: Airway is patent Respiratory effort is even, unlabored, Respiratory pattern is regular, symmetrical, Breath sounds are clear bilaterally. GI: Abdomen is round non-distended, Bowel sounds present X 4 quads. Abd is soft and non tender X 4 quads. GI: Reports nausea, vomiting. : No signs and/or symptoms were reported regarding the genitourinary system. EENT: No signs and/or symptoms were reported regarding the EENT system. Derm: Skin is intact, is healthy with good turgor, Skin is pink, warm \\T\\ dry. Musculoskeletal: Circulation, motion, and sensation intact. Capillary refill < 3 seconds. 14:33 Reassessment: Patient and/or family updated on plan of care and expected duration. Pain ls4 level reassessed. Patient is alert, oriented x 3, equal unlabored respirations, skin warm/dry/pink. 15:19 Reassessment: Patient appears in no apparent distress at this time. Patient and/or ls4 family updated on plan of care and expected duration. Pain level reassessed. Patient is alert, oriented x 3, equal unlabored respirations, skin warm/dry/pink. Patient states symptoms have improved. Vital Signs: 13:16 BP 127 / 78; Pulse 114; Resp 18 S; Temp 97.7(O); Pulse Ox 100% on R/A; Pain 10/10; aa5 13:24 BP 119 / 76; Pulse 99; Resp 16 S; Pulse Ox 99% on R/A; ca1 ED Course: 13:00 Patient arrived in ED. as 13:16 Arm band placed on. aa5 13:18 [facility] Slade [facility]. cp 13:18 Jhonatan Hudson MD is Attending Physician. cp 13:20 Marylou Rothman RN is Primary Nurse. ca1 13:20 Patient has correct armband on for positive identification. Bed in low position. Call ca1 light in reach. Side rails up X 1. Pulse ox on. NIBP on. Warm blanket given. 13:26 Triage completed. aa5 13:33 No provider procedures requiring assistance completed. Initial lab(s) drawn, by tx, ca1 held in ED. Inserted saline lock: 20 gauge in right antecubital area, using aseptic technique. Blood collected. 13:53 Report given to FLOR Madrigal. ca1 16:16 Evert Tracy MD is Referral Physician. cp 16:55 Diet: Tolerated well. ls4 Administered Medications: 14:20 Drug: Zofran (Ondansetron) 4 mg Route: IVP; Site: right antecubital; ls4 14:22 Drug: Demerol - Meperidine 12.5 mg Route: IVP; Site: right antecubital; ls4 14:25 Drug: Benadryl 25 mg Route: IVP; Site: right antecubital; ls4 14:27 Drug: Reglan 10 mg Route: IVP; Site: right antecubital; ls4 14:28 Drug: NS 0.9% 1000 ml Route: IV; Rate: 1 bolus; Site: right antecubital; ls4 16:34 Drug: Demerol 25 mg Route: IVP; Site: right antecubital; rb1 16:35 Drug: TORadol - Ketorolac 15 mg Route: IVP; Site: right antecubital; rb1 Outcome: 16:17 Discharge ordered by . cp 17:25 Patient left the ED. ls4 Signatures: Letty Springer Audri, RN RN aa5 Mj Slade PA PA cp Barber, Rebecca, RN RN rb1 Kaitlin Mott, RN RN ls4 Marylou Rothman, RN RN ca1
--- NOTE | 2019-07-18 16:18 | EDPHYS ---
Physician Documentation [facility] Name: Tash Peña Age: 34 yrs Sex: Female : 1985 Arrival Date: 07/18/2019 Time: 13:00 Bed 19 Private MD: ED Physician Jhonatan Hudson HPI: 07/17 13:55 This 34 yrs old Female presents to ER via Ambulatory with complaints of cp Headache > 24hrs Old, Vision Problem. 13:55 The patient complains of pain to the top of head and forehead and back of head. The cp patient describes the headache as aching. Onset: The symptoms/episode began/occurred 1 week(s) ago. Associated signs and symptoms: Pertinent positives: nausea, vomiting. Severity of symptoms: in the emergency department the pain a " 9" out of "10". 13:55 Headache History: The patient has had previous headaches and this one is similar to cp previous episodes. 13:55 The patient has been recently seen by a physician: in [facility], earlier today, with cp similar presenting complaints, lab tests were done, CT scan was done. Head CT report performed today at [facility] negative for acute findings. 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 - Social history:: Smoking status: Patient reports the use of cigarette tobacco products, denies chronic smoking, but will smoke occasionally. ROS: 14:00 Constitutional: Negative for body aches, chills, fever, poor PO intake. cp 14:00 Eyes: Positive for photophobia, Negative for discharge, pain. cp 14:00 ENT: Negative for drainage from ear(s), ear pain, sore throat, difficulty swallowing, difficulty handling secretions. 14:00 Neck: Negative for stiffness. 14:00 Respiratory: Negative for cough, shortness of breath, wheezing. 14:00 Abdomen/GI: Positive for nausea and vomiting, Negative for abdominal pain, diarrhea, constipation. 14:00 : Negative for urinary symptoms. 14:00 Neuro: Positive for headache, Negative for altered mental status, weakness. 14:00 All other systems are negative. Exam: 14:10 Constitutional: The patient appears in no acute distress, alert, awake, non-toxic, well cp developed, well nourished. 14:10 Head/Face: Normocephalic, atraumatic. cp 14:10 Eyes: Periorbital structures: appear normal, Pupils: equal, round, and reactive to light and accomodation, Extraocular movements: intact throughout, Conjunctiva: normal, no exudate, no injection, Lids and lashes: appear normal, bilaterally. 14:10 ENT: External ear(s): are unremarkable, Nose: is normal, Mouth: is normal, Posterior pharynx: is normal, airway is patent. 14:10 Neck: ROM/movement: limited range of motion, is not appreciated, Meningeal signs: are not present, nuchal rigidity, is not appreciated. 14:10 Chest/axilla: Inspection: normal, Palpation: is normal, no crepitus, no tenderness. 14:10 Cardiovascular: Rate: tachycardic, Rhythm: regular. 14:10 Respiratory: the patient does not display signs of respiratory distress, Respirations: normal, no use of accessory muscles, no retractions, labored breathing, is not present, Breath sounds: are clear throughout, no decreased breath sounds, no stridor, no wheezing. 14:10 Abdomen/GI: Exam negative for discomfort, distension, guarding, Inspection: abdomen appears normal. 14:10 Back: pain, is absent, ROM is normal. 14:10 Neuro: Orientation: to person, place \\T\\ time. Mentation: is normal, Cerebellar function: cp is grossly normal, Motor: moves all fours, strength is normal, Sensation: is normal. Vital Signs: 13:16 BP 127 / 78; Pulse 114; Resp 18 S; Temp 97.7(O); Pulse Ox 100% on R/A; Pain 10/10; aa5 13:24 BP 119 / 76; Pulse 99; Resp 16 S; Pulse Ox 99% on R/A; ca1 MDM: 13:30 Patient medically screened. cp 16:15 Data reviewed: vital signs, nurses notes, lab test result(s), and as a result, I will cp discharge patient. 16:15 Counseling: I had a detailed discussion with the patient and/or guardian regarding: the cp historical points, exam findings, and any diagnostic results supporting the discharge/admit diagnosis, lab results, the need for outpatient follow up, a neurologist, to return to the emergency department if symptoms worsen or persist or if there are any questions or concerns that arise at home. Response to treatment: the patient's symptoms have markedly improved after treatment. 07/17 13:52 Order name: CBC with Diff cp 07/17 15:22 Interpretation: Normal except: WBC 17.4; GIA% 93.7; LYM% 5.1; MN% 1.0; NEUT A 16.3. cp 07/17 13:52 Order name: BMP; Complete Time: 15:21 cp 07/17 15:22 Interpretation: Normal except: CL 109; GLUC 124. cp 07/17 14:10 Order name: Urine Dipstick--Ancillary (enter results); Complete Time: 15:21 eb 07/17 15:21 Interpretation: Normal except: UBLD TRACE. cp 07/17 14:10 Order name: Urine --Ancillary (enter results); Complete Time: 15:21 eb 07/17 16:59 Order name: CBC Smear Scan EDMS 07/17 13:52 Order name: IV; Complete Time: 14:03 cp 07/17 13:52 Order name: Urine Dipstick-Ancillary (obtain specimen); Complete Time: 14:16 cp 07/17 13:52 Order name: Urine Test (obtain specimen); Complete Time: 14:16 cp 07/17 15:27 Order name: PO challenge; Complete Time: 16:54 cp Administered Medications: 14:20 Drug: Zofran (Ondansetron) 4 mg Route: IVP; Site: right antecubital; ls4 14:22 Drug: Demerol - Meperidine 12.5 mg Route: IVP; Site: right antecubital; ls4 14:25 Drug: Benadryl 25 mg Route: IVP; Site: right antecubital; ls4 14:27 Drug: Reglan 10 mg Route: IVP; Site: right antecubital; ls4 14:28 Drug: NS 0.9% 1000 ml Route: IV; Rate: 1 bolus; Site: right antecubital; ls4 16:34 Drug: Demerol 25 mg Route: IVP; Site: right antecubital; rb1 16:35 Drug: TORadol - Ketorolac 15 mg Route: IVP; Site: right antecubital; rb1 Disposition: 16:20 Chart complete. cp 17:29 Co-signature as Attending Physician, Jhonatan Hudson MD. rn Disposition: 07/18/19 16:17 Discharged to Home. Impression: Headache. - Condition is Stable. - Discharge Instructions: Migraine Headache. - Prescriptions for Phenergan 25 mg Rectal Suppository - insert 1 suppository by RECTAL route every 6 hours As needed; 12 suppository. promethazine 25 mg Oral Tablet - take 1 tablet by ORAL route every 6 hours As needed; 20 tablet. - Medication Reconciliation Form, Thank You Letter, Antibiotic Education, Prescription Opioid Use form. - Follow up: Evert Tracy MD; When: 1 - 2 days; Reason: Recheck today's complaints. - Problem is an ongoing problem. - Symptoms have improved. Signatures: Dispatcher [employer] EDMS Jhonatan Hudson MD MD rn Calderon, Audri RN RN aa5 Mj Slade PA PA cp Lillian Lowry RN RN rb1 Kaitlin Mott RN RN ls4 Marylou Rothman RN RN ca1 Corrections: (The following items were deleted from the chart) 17:25 16:17 07/18/2019 16:17 Discharged to Home. Impression: Headache. Condition is Stable. ls4 Forms are Medication Reconciliation Form, Thank You Letter, Antibiotic Education, Prescription Opioid Use. Follow up: Evert Tracy; When: 1 - 2 days; Reason: Recheck today's complaints. Problem is an ongoing problem. Symptoms have improved. cp
[2019-07-18] MEDS ORDERED: KETOROLAC 30 MG/ML INJ ONE (16:34)
[2019-07-18 16:58] LABS: Blood Morphology Comment NOTED (NOT SEEN); Platelet Estimate ADEQ; Poikilocytosis 1+; Urine White Blood Cell Casts OK
[2019-07-18 17:43] VITALS: TEMP 97.7
[2019-07-18 17:44] VITALS: BP 119/76; O2SAT 99
== END 2019-07-18 17:25 | disposition home or self-care (01) ==
LOC: ER 12:58
DX: R51 Headache (principal); R11.2 Nausea with vomiting, unspecified; Z72.0 Tobacco use
CPT/HCPCS: 85025; 80048; 36415; 81025; 81003; 96375; 96374; 99284; J2765; J1200; J2175 ×2; J7030; J2405

== ENCOUNTER 2019-07-19 10:39 | Emergency (ER) | payer OTHER ==
[2019-07-19] MEDS ORDERED: NA CHLORIDE 0.9% 1,000 ML ONE (10:55)
[2019-07-19] MEDS ORDERED: MAGNESIUM SULFATE 1 gm IVPB 1 GM/100 ML BAG IV ONE (10:55)
[2019-07-19] MEDS ORDERED: LORAZEPAM 1 MG TABLET ONE (10:56)
[2019-07-19] MEDS ORDERED: MELATONIN 5 MG TABLET PO ONE (11:00)
--- OUTSIDE RECORDS SUMMARY | 2019-07-19 11:04 | XMS REPORT ---
:1985 Author Organization [facility] Address [address] [place] [address] Dr. Lyons [address] [place] [id number] Care Team Providers Name Role Phone Unavailable [...] Viri defined Tylenol Tylenol Yes Ladan not [facility] defined Albuterol Albuterol Yes Ladan not [facility] defined Abilify Abilify Yes Ladan 1 tablet [facility] Robitussin Robitussin Yes Ladan 10 ml as 12 Hour 12 Hour [facility] needed Cough Cough Singulair Singulair Yes Ladan not [facility] defined Trileptal Trileptal Yes Ladan 2 tablets [facility] Cefdinir Cefdinir Yes Ladan as Viri directed Encounters Start End Encounter Admission Attending Care Care Encounter Date/Time Date/Time Type Type Clinicians Facility Department ID 2019-04-27 2019-04-27 [id number] 13:00:00 13:00:00 Specialty/U Specialty/U [facility] Clinic Clinic 2018-10-04 2018-10-04 [id number] 09:15:00 09:15:00 Urgent Care [facility] Clinic
--- OUTSIDE RECORDS SUMMARY | 2019-07-19 11:04 | XMS REPORT ---
[...] Start Date End Date Status Dosage Singulair [facility] [address] Active not defined -30 Xyzal NDC 0 Active not defined Albuterol NDC 0 [place] [address] Active not define d -01 Tylenol NDC 0 Active not defined Results Name Result Date Reference Range Unit Abnormali ty Flag STREP A RAPID ----Result Negative [id number] Summary Purpose [employer]ClinicalWorks Submission
--- OUTSIDE RECORDS SUMMARY | 2019-07-19 11:04 | XMS REPORT ---
[...] End Status Dosage System Date Date Albuterol [facility] 88389546011 Active not define d Abilify [facility] 03352330732 5 MG Orally Active 1 tablet Once a day Robitussin 12 [facility] 33074720095 30 MG/5ML Active 10 m l as Hour Cough Orally every 12 neede d hrs Singulair [facility] 15389730343 Active not define d Tylenol NDC 0 Active not defined Trileptal [facility] 95704024271 150 MG Orally Active 2 ta blets Twice a day ProAir HFA [facility] [address]-57 Active not def ined Cefdinir [facility] 13182376197 300 MG Orally Active as di rected Xyzal ND 0 Active not defined Results No Known Results Summary Purpose [facility]
[2019-07-19] MEDS ORDERED: PROMETHAZINE INJ 25 MG/ML AMP ONE (11:35)
--- NOTE | 2019-07-19 12:47 | EDPHYS ---
Physician Documentation [facility] Name: Tash Peña Age: 34 yrs Sex: Female : 1985 Arrival Date: 07/19/2019 Time: 10:40 Bed 8 Private MD: ED Physician Jhonatan Hudson HPI: 07/18 12:42 This 34 yrs old Female presents to ER via EMS with complaints of Headache. snw 12:42 The patient complains of pain to the top of head and forehead. The patient describes snw the headache as constant, pounding, a pressure, unrelenting. Onset: The symptoms/episode began/occurred gradually, 5 day(s) ago, and became persistent. Associated signs and symptoms: Pertinent positives: nausea, blurred vision, vomiting. Severity of symptoms: At its worst the pain was moderate, severe. Headache History: The patient has had previous headaches and this one is similar to previous episodes. The symptoms are alleviated by nothing. The patient has been recently seen by a physician: x three visits for same headache. 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 - Social history:: Smoking status: . ROS: 11:58 Constitutional: Negative for fever, chills, and weight loss, Eyes: Negative for injury, snw pain, redness, and discharge, + blurry vision ENT: Negative for injury, pain, and discharge, Neck: Negative for injury, pain, and swelling, Cardiovascular: Negative for chest pain, palpitations, and edema, Respiratory: Negative for shortness of breath, cough, wheezing, and pleuritic chest pain, Abdomen/GI: Negative for abdominal pain, diarrhea, and constipation, positive for nausea, vomiting Back: Negative for injury and pain, : Negative for injury, bleeding, discharge, and swelling, MS/Extremity: Negative for injury and deformity, Skin: Negative for injury, rash, and discoloration. 11:58 Neuro: Positive for headache, of the top of head and forehead. Exam: 11:58 Constitutional: This is a well developed, well nourished patient who is awake, alert, snw and in no acute distress. Head/Face: Normocephalic, atraumatic. Eyes: Pupils equal round and reactive to light, extra-ocular motions intact. Lids and lashes normal. Conjunctiva and sclera are non-icteric and not injected. Cornea within normal limits. Periorbital areas with no swelling, redness, or edema. ENT: Nares patent. No nasal discharge, no septal abnormalities noted. Tympanic membranes are normal and external auditory canals are clear. Oropharynx with no redness, swelling, or masses, exudates, or evidence of obstruction, uvula midline. Mucous membranes moist. Neck: Trachea midline, no thyromegaly or masses palpated, and no cervical lymphadenopathy. Supple, full range of motion without nuchal rigidity, or vertebral point tenderness. No Meningismus. Chest/axilla: Normal chest wall appearance and motion. Nontender with no deformity. No lesions are appreciated. Cardiovascular: Regular rate and rhythm with a normal S1 and S2. No gallops, murmurs, or rubs. Normal PMI, no JVD. No pulse deficits. Respiratory: Lungs have equal breath sounds bilaterally, clear to auscultation and percussion. No rales, rhonchi or wheezes noted. No increased work of breathing, no retractions or nasal flaring. Abdomen/GI: Soft, non-tender, with normal bowel sounds. No distension or tympany. No guarding or rebound. No evidence of tenderness throughout. Back: No spinal tenderness. No costovertebral tenderness. Full range of motion. Skin: Warm, dry with normal turgor. Normal color with no rashes, no lesions, and no evidence of cellulitis. MS/ Extremity: Pulses equal, no cyanosis. Neurovascular intact. Full, normal range of motion. Psych: Awake, alert, with orientation to person, place and time. Behavior, mood, and affect are within normal limits. 11:58 Neuro: Orientation: is normal, Mentation: is normal, Memory: is normal, Cranial nerves: grossly normal, Cerebellar function: is grossly normal, Sensation: is normal, seizure activity, is not displayed by the patient, Abnormal movements: there are no abnormal movements. Vital Signs: 10:42 BP 120 / 88; Pulse 85; Resp 20; Temp 98.2; Pulse Ox 100% ; Height 5 ft. 4 in. (162.56 sv cm); Pain 10/10; 11:49 BP 131 / 91; Pulse 77; Resp 20; Pulse Ox 100% ; sv [place] Coma Score: 11:58 Eye Response: spontaneous(4). Verbal Response: oriented(5). Motor Response: obeys snw commands(6). Total: 15. 12:32 Eye Response: spontaneous(4). Verbal Response: oriented(5). Motor Response: obeys snw commands(6). Total: 15. MDM: 10:44 Patient medically screened. snw 12:32 Data reviewed: vital signs, nurses notes. Data interpreted: Pulse oximetry: on room air snw is 100 %. Interpretation: normal. Counseling: I had a detailed discussion with the patient and/or guardian regarding: the historical points, exam findings, and any diagnostic results supporting the discharge/admit diagnosis, the presence of at least one elevated blood pressure reading (>120/80) during this emergency department visit, the need for outpatient follow up, for definitive care, a neurologist. Special discussion: Based on the history and exam findings, there is no indication for further emergent testing or inpatient evaluation. I discussed with the patient/guardian the need to see the neurologist for further evaluation of the symptoms. I discussed with the patient/guardian the need to see the primary care provider for further evaluation of the symptoms. ED course: Pt very upset that she is still having pain. Pt refuses gabapentin, toradol, steroids, imitrex as "they don't work". Pt informed that she really needs to see Neurology. She states the earliest appt she can get is the of this month. Encouraged to keep appt. Discussed with pt that narcotics are not in the treatment algorithm for migraine. Pt had CT which was negative yesterday. She has been seen at [facility] and this is her third visit to this ED this week. Pt states she has had migraines x 15+ years. She states she used to take a maintenance of Riboflavin, gabapentin, topamax, magnesium, and phenergan. She no longer takes this maintenance schedule as she has not been having the migraines in a while. She states they typically occur with menses. Last menses was two weeks ago. Pt states she is not interested in taking these medications and she is leaving to go to a different facility to get "listened to". Administered Medications: 10:55 Drug: NS 0.9% 1000 ml Route: IV; Rate: 1 bolus; Site: left antecubital; sv 11:43 Follow up: Response: No adverse reaction; IV Status: Completed infusion; IV Intake: sv 1000ml 10:55 Drug: Magnesium Sulfate 1 grams Route: IVPB; Infused Over: 1 hrs; Site: left sv antecubital; 12:00 Follow up: Response: No adverse reaction; IV Status: Completed infusion; IV Intake: sv 100ml 10:55 Drug: Ativan 1 mg Route: PO; sv 11:43 Follow up: Response: No adverse reaction; No change in condition sv 11:42 Drug: Melatonin 10 mg Route: PO; sv 12:00 Follow up: Response: No adverse reaction sv 11:42 Drug: Phenergan 12.5 mg Route: IVP; Site: left antecubital; sv 12:00 Follow up: Response: No adverse reaction sv Disposition: 14:37 Co-signature as Attending Physician, Jhonatan Hudson MD. rn Disposition: 07/19/19 12:45 Patient has left against medical advice. Impression: Migraine. - Patients states they are going to Home. - Condition is Stable. - Discharge Instructions: Migraine Headache. - Prescriptions for Phenergan 12.5 mg Rectal Suppository - insert 1 suppository by RECTAL route every 6 hours As needed; 12 suppository. Neurontin 300 mg Oral Capsule - take 1 capsule by ORAL route every 8 hours; 30 capsule. Follow up: Evert Tracy MD; When: 1 - 2 days; Reason: If symptoms return, Recheck today's complaints, Continuance of care. - Problem is an ongoing problem. - Symptoms are unchanged. Signatures: Annette Douglass RN RN sv Ángela Green, PROJ MGR-C PROJ MGR-Csnw Jhonatan Hudson MD MD lpn rn: (The following items were deleted from the chart) 13:11 12:45 07/19/2019 12:45 Patients has left against medical advice. Impression: Migraine. sv Patient states they are going to Home. Condition is Stable. Discharge Instructions: Migraine Headache. Prescriptions for Phenergan 12.5 mg Rectal Suppository - insert 1 suppository by RECTAL route every 6 hours As needed; 12 suppositoryFollow up: Evert Tracy; When: 1 - 2 days; Reason: If symptoms return, Recheck today's complaints, Continuance of care. Problem is an ongoing problem. Symptoms are unchanged. snw
--- NOTE | 2019-07-19 12:47 | ER ---
Nurse's Notes [facility] Name: Tash Peña Age: 34 yrs Sex: Female : 1985 Arrival Date: 07/19/2019 Time: 10:40 Bed 8 Private MD: Diagnosis: Migraine Presentation: 07/18 10:40 Chief complaint: EMS states: frontal migraine since last Friday and nausea. Was seen sv here on Friday for this and medicated and discharged. Vitals stable. BS-84 18G L AC. Coronavirus screen: Proceed with normal triage. Patient denies a cough. Patient denies shortness of breath or difficulty breathing. Patient denies measured and/or subjective temperature greater than 100.4F prior to today's visit. Patient denies travel on a cruise ship or to a country the [facility]NOTE 3] currently lists as an affected area. Patient denies contact with known and/or suspected case of COVID-19. Ebola Screen: No symptoms or risks identified at this time. Initial Sepsis Screen: Does the patient meet any 2 criteria? No. Patient's initial sepsis screen is negative. Does the patient have a suspected source of infection? No. Patient's initial sepsis screen is negative. Risk Assessment: Do you want to hurt yourself or someone else? Patient reports no desire to harm self or others. Onset of symptoms was July 12, 2019. 10:40 Method Of Arrival: EMS: [facility] 10:40 Acuity: MABLE 4 Triage Assessment: 10:43 Headache History: The patient has had previous headaches and this one is similar to previous episodes, and this one is more severe than previous episodes. General: Appears in no apparent distress. uncomfortable, well developed, Behavior is calm, cooperative, appropriate for age. Pain: Complains of pain in top of head and forehead Pain currently is 10 out of 10 on a pain scale. Pain began Last Friday Is continuous, Also complains of nausea, photophobia, inability to work, inability to perform activities of daily living. Neuro: Level of Consciousness is awake, alert, obeys commands, Oriented to person, place, time, situation, Moves all extremities. Full function Gait is steady, Speech is normal, Facial symmetry appears normal. Respiratory: Airway is patent Respiratory effort is even, unlabored, Respiratory pattern is regular, symmetrical. Derm: Skin is pink, warm \T\ dry. 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 - Social history:: Smoking status: . Screenin:43 Abuse screen: Denies threats or abuse. Denies injuries from another. Nutritional sv screening: No deficits noted. Tuberculosis screening: No symptoms or risk factors identified. Fall Risk None identified. Assessment: 10:55 Reassessment: Patient appears in no apparent distress at this time. No changes from sv previously documented assessment. Patient and/or family updated on plan of care and expected duration. Pain level reassessed. Patient is alert, oriented x 3, equal unlabored respirations, skin warm/dry/pink. 11:20 Reassessment: Patient appears in no apparent distress at this time. No changes from sv previously documented assessment. Patient and/or family updated on plan of care and expected duration. Pain level reassessed. Patient is alert, oriented x 3, equal unlabored respirations, skin warm/dry/pink. Pt crying stating that she's in pain and is nauseous. Informed Ángela CHALK MACHINE OPERATOR, ordered to give meds and nausea meds as ordered. 11:42 Reassessment: Patient appears in no apparent distress at this time. Patient and/or sv family updated on plan of care and expected duration. Pain level reassessed. Patient is alert, oriented x 3, equal unlabored respirations, skin warm/dry/pink. 12:00 Reassessment: Patient appears in no apparent distress at this time. No changes from sv previously documented assessment. Patient and/or family updated on plan of care and expected duration. Pain level reassessed. Patient is alert, oriented x 3, equal unlabored respirations, skin warm/dry/pink. Informed Ángela CHALK MACHINE OPERATOR pt is c/o pain. No change since meds have been giving. Vital Signs: 10:42 BP 120 / 88; Pulse 85; Resp 20; Temp 98.2; Pulse Ox 100% ; Height 5 ft. 4 in. (162.56 sv cm); Pain 10/10; 11:49 BP 131 / 91; Pulse 77; Resp 20; Pulse Ox 100% ; sv Sean Coma Score: 11:58 Eye Response: spontaneous(4). Verbal Response: oriented(5). Motor Response: obeys snw commands(6). Total: 15. 12:32 Eye Response: spontaneous(4). Verbal Response: oriented(5). Motor Response: obeys snw commands(6). Total: 15. ED Course: 10:40 Patient arrived in ED. em 10:40 Annette Douglass RN is Primary Nurse. sv 10:40 Ángela Green FNP-C is PHCP. snw 10:40 Jhonatan Hudson MD is Attending Physician. snw 10:41 Triage completed. sv 10:42 Arm band placed on. sv 10:43 Patient has correct armband on for positive identification. Bed in low position. Call sv light in reach. Side rails up X2. Pulse ox on. NIBP on. Door closed. Head of bed elevated. 10:43 Maintain EMS IV. Dressing intact. Site clean \T\ dry. Gauge \T\ site: 18G L AC. sv 10:51 Warm blanket given. mh5 12:44 Evert Tracy MD is Referral Physician. snw 13:00 No provider procedures requiring assistance completed. IV discontinued, intact, sv bleeding controlled, No redness/swelling at site. Pressure dressing applied. Administered Medications: 10:55 Drug: NS 0.9% 1000 ml Route: IV; Rate: 1 bolus; Site: left antecubital; sv 11:43 Follow up: Response: No adverse reaction; IV Status: Completed infusion; IV Intake: sv 1000ml 10:55 Drug: Magnesium Sulfate 1 grams Route: IVPB; Infused Over: 1 hrs; Site: left sv antecubital; 12:00 Follow up: Response: No adverse reaction; IV Status: Completed infusion; IV Intake: sv 100ml 10:55 Drug: Ativan 1 mg Route: PO; sv 11:43 Follow up: Response: No adverse reaction; No change in condition sv 11:42 Drug: Melatonin 10 mg Route: PO; sv 12:00 Follow up: Response: No adverse reaction sv 11:42 Drug: Phenergan 12.5 mg Route: IVP; Site: left antecubital; sv 12:00 Follow up: Response: No adverse reaction sv Intake: 11:43 IV: 1000ml; Total: 1000ml. sv 12:00 IV: 100ml; Total: 1100ml. sv Outcome: 13:00 AMA Left before signing form. sv 13:00 Condition: stable 13:11 Patient left the ED. sv Signatures: Annette Douglass RN RN sv Therrien, Shelly, PUBLIC HEALTH NUTRITIONIST-C PUBLIC HEALTH NUTRITIONIST-Porterw Manpreet Machuca, Melina Alvarez RN [facility]
[2019-07-19 13:23] VITALS: TEMP 98.2; O2SAT 100
[2019-07-19 13:24] VITALS: BP 131/91
== END 2019-07-19 13:11 | disposition left against medical advice (07) ==
LOC: ER 10:39
DX: G43.909 Migraine, unspecified, not intractable, without status migrainosus (principal); F31.9 Bipolar disorder, unspecified
CPT/HCPCS: J2550; J3475; J7030; 96365; 96375; 99283